=== PATIENT | female | born 1985 | race African-American/Black ===

== ENCOUNTER 2016-07-05 22:45 | Emergency (ER) | payer SELFPAY ==
[~2016-07-05] VITALS: Ht 175.3 cm; Wt 176.9 kg
[~2016-07-05 22:45] MED LIST: CYCL10TA2 PO; HYDR-971 PO; MEDR5TAB PO; SULF1TAB24 PO
--- NOTE | 2016-07-05 23:28 | PHYS DOC ---
Past Medical History Past Medical History: Hypertension Past Surgical History: Other Additional Past Surgical Histo: LEEP Alcohol Use: Rarely Drug Use: None Adult General Chief Complaint Chief Complaint: SHORTNESS OF BREATH HPI HPI Patient is a 31 year old female who presents with shortness of breath. Patient reports she has been feeling short of breath for the past 2 weeks. She also reports an aching pain around her lower rib margin on either side. No clear inciting or mitigating factors. Patient has not taken anything for symptoms. She is noted to be hypertensive on arrival to ED. She says she does have history of hypertension but does not take any meds for it. No other acute complaints. Review of Systems Review of Systems Constitutional: Denies fever or chills Eyes: Denies change in visual acuity or eye pain HENT: Denies nasal congestion or sore throat Respiratory: Shortness of breath. Denies cough Cardiovascular: Achy around lower costal margin b/l GI: Denies abdominal pain, nausea, vomiting, bloody stools or diarrhea : Denies dysuria or hematuria Musculoskeletal: Denies back pain or joint pain Integument: Denies rash or skin lesions Neurologic: Denies headache, focal weakness or sensory changes Current Medications Current Medications Current Medications Medications (Trade) Dose Ordered Sig/Therese Start Time Stop Time Status Last Admin Dose Admin Aspirin (Children'S Aspirin) 324 mg 1X ONCE 07/05/16 23:45 07/05/16 23:46 DC 07/05/16 23:45 324 MG Labetalol HCl (Normodyne) 20 mg 1X ONCE 07/05/16 23:45 07/05/16 23:46 DC 07/06/16 00:12 20 MG Allergies Allergies Allergies Coded Allergies Type Severity Reaction Last Updated Verified No Known Drug Allergies 12/03/13 No Physical Exam Physical Exam Constitutional: Well developed, well nourished, no acute distress, non-toxic appearance HENT: Normocephalic, atraumatic, bilateral external ears normal Eyes: EOMI, conjunctiva normal, no discharge Neck: Normal range of motion, no stridor Cardiovascular: Heart rate normal, regular rhythm, no murmur Lungs & Thorax: Bilateral breath sounds clear to auscultation Abdomen: Obese, bowel sounds normal, soft, non-distended, no TTP Skin: Warm, dry, no erythema, no rash Extremities: No obvious deformity, no edema Neurologic: Alert and oriented X 3, no gross deficits noted Psychologic: Affect normal, judgement normal, mood normal Current Patient Data Vital Signs Vital Signs Date Time Temp Pulse Resp B/P Pulse Ox O2 Delivery O2 Flow Rate FiO2 07/06/16 00:41 80 135/76 93 Room Air 07/05/16 22:58 97.6 18 97.6 Lab Values Laboratory Tests Test 07/05/16 23:20 07/05/16 23:40 White Blood Count 6.8x10^3/uL (4.0-11.0) Red Blood Count 4.70x10^6/uL (3.50-5.40) Hemoglobin 12.3g/dL (12.0-15.5) Hematocrit 37.2% (36.0-47.0) Mean Corpuscular Volume 79fL (79-100) Mean Corpuscular Hemoglobin 26pg (25-35) Mean Corpuscular Hemoglobin Concent 33g/dL (31-37) Red Cell Distribution Width 15.5% (11.5-14.5) H Platelet Count 385x10^3/uL (140-400) Neutrophils (%) (Auto) 49% (31-73) Lymphocytes (%) (Auto) 35% (24-48) Monocytes (%) (Auto) 11% (0-9) H Eosinophils (%) (Auto) 4% (0-3) H Basophils (%) (Auto) 1% (0-3) Neutrophils # (Auto) 3.3x10^3uL (1.8-7.7) Lymphocytes # (Auto) 2.4x10^3/uL (1.0-4.8) Monocytes # (Auto) 0.8x10^3/uL (0.0-1.1) Eosinophils # (Auto) 0.3x10^3/uL (0.0-0.7) Basophils # (Auto) 0.0x10^3/uL (0.0-0.2) D-Dimer (Idalmis) < 0.27ug/mlFEU (0.00-0.50) Sodium Level 143mmol/L (136-145) Potassium Level 3.5mmol/L (3.5-5.1) Chloride Level 106mmol/L (98-107) Carbon Dioxide Level 29mmol/L (21-32) Anion Gap 8 (6-14) Blood Urea Nitrogen 10mg/dL (7-20) Creatinine 0.7mg/dL (0.6-1.0) Estimated GFR (Cockcroft-Gault) 118.1 Glucose Level 105mg/dL (70-99) H Calcium Level 9.2mg/dL (8.5-10.1) Total Bilirubin 0.3mg/dL (0.2-1.0) Direct Bilirubin < 0.1mg/dL (0.0-0.2) Aspartate Amino Transferase (AST) 22U/L (15-37) Alanine Aminotransferase (ALT) 31U/L (14-59) Alkaline Phosphatase 81U/L (46-116) Troponin I Quantitative < 0.017ng/mL (0.000-0.055) Total Protein 8.0g/dL (6.4-8.2) Albumin 3.2g/dL (3.4-5.0) L POC Urine HCG, Qualitative Hcg negative (Negative) Laboratory Tests 07/05/16 23:20 Laboratory Tests 07/05/16 23:20 EKG EKG EKG (my read): sinus rhythm, rate 83, normal axis, QTc 473, no acute ischemic changes Radiology/Procedures Radiology/Procedures CXR (my read): No acute abnormality Course & Med Decision Making Course & Med Decision Making Pertinent Labs and Imaging studies reviewed. (See chart for details) Patient is 31-year-old female who presents with shortness of breath. Will check EKG, chest x-ray, labs to evaluate. Dose of labetalol ordered for hypertension. Dose of aspirin ordered as well. EKG and chest x-ray okay per my read. Labs unremarkable; troponin and d-dimer are both within normal limits. Given duration of symptoms, single troponin is sufficient to rule out UT. Discussed results with patient, who is feeling better at this time. As she has history of hypertension and is markedly hypertensive in the ED, will start her on low-dose amlodipine. Discussed the importance of close follow-up with the primary care physician. Discharged home with return precautions. Dragon Disclaimer Dragon Disclaimer This electronic medical record was generated, in whole or in part, using a voice recognition dictation system. Departure Departure Impression: Primary Impression: SOB (shortness of breath) Additional Impression: Hypertension Disposition: HOME, SELF-CARE Condition: STABLE Referrals: NO PCP (PCP) Patient Instructions: Hypertension Additional Instructions: Thank you for allowing us to provide care today in the Emergency Department. Take the provided medication as directed. Schedule a follow up appointment with a primary care doctor using the provided list as soon as possible. Return promptly to the Emergency Department if you develop any new or concerning symptoms. Scripts Amlodipine Besylate 5 Mg Tablet5 Mg PO DAILY #30 TAB Prov:MALIK MICHAEL MD 07/06/16 Problem Qualifiers MALIK MICHAEL MD Jul 05, 2016 23:28
[2016-07-05 23:39] LABS: BASO % 1 % (0-3); EOS % 4 % (0-3); HEMATOCRIT 37.2 % (36.0-47.0); HEMOGLOBIN 12.3 g/dL (12.0-15.5); LYMPH # 2.4 x10^3/uL (1.0-4.8); LYMPH % 35 % (24-48); MEAN CORPUSCULAR HEMOGLOBIN 26 pg (25-35); MEAN CORPUSCULAR HGB CONC 33 g/dL (31-37); MEAN CORPUSCULAR VOLUME 79 fL (79-100); MONO % 11 % (0-9); NEUT % 49 % (31-73); PLATELET COUNT 385 x10^3/uL (140-400); RED CELL DISTRIBUTION WIDTH 15.5 % (11.5-14.5); WHITE BLOOD COUNT 6.8 x10^3/uL (4.0-11.0)
[2016-07-05] MEDS ORDERED: ASPIRIN 81 MG TAB.CHEW PO ONE (23:45)
[2016-07-05] MEDS ORDERED: LABETALOL 20 MG/4 ML DISP.SYRIN. IVP ONE (23:45)
[2016-07-05 23:55] LABS: ANION GAP 8 (6-14); BLOOD UREA NITROGEN 10 mg/dL (7-20); CALCIUM 9.2 mg/dL (8.5-10.1); CARBON DIOXIDE 29 mmol/L (21-32); CHLORIDE 106 mmol/L (98-107); CREATININE 0.7 mg/dL (0.6-1.0); GFR 118.1; GLUCOSE 105 mg/dL (70-99); POTASSIUM 3.5 mmol/L (3.5-5.1); SODIUM 143 mmol/L (136-145)
[2016-07-06 00:01] LABS: ALBUMIN 3.2 g/dL (3.4-5.0); ALK PHOS 81 U/L (46-116); ALT (SGPT) 31 U/L (14-59); AST (SGOT) 22 U/L (15-37); DIRECT BILIRUBIN < 0.1 mg/dL (0.0-0.2); TOTAL BILIRUBIN 0.3 mg/dL (0.2-1.0)
[2016-07-06 00:41] VITALS: BP 135/76
[2016-07-06] MEDS ORDERED: AMLO5TAB2 PO (00:41)
--- NOTE | 2016-07-06 06:44 | EKG ---
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
--- NOTE | 2016-07-06 07:36 | RAD ---
Chest, 2 views, 07/05/2016: History: Shortness of breath The heart size and pulmonary vascularity are normal. No pulmonary infiltrates are seen. There is no evidence of pleural fluid. IMPRESSION: No acute cardiopulmonary abnormality is detected.
== END 2016-07-06 00:54 | disposition home or self-care (01) ==
LOC: ER 22:45
DX: R06.02 Shortness of breath (principal); I10 Essential (primary) hypertension
CPT/HCPCS: 36415; 71020; 80048; 80076; 81025; 84484; 85027; 85379; 93005; 96374; 99285; J3490

== ENCOUNTER 2016-11-10 15:56 | Emergency (ER) | payer SELFPAY ==
[~2016-11-10] VITALS: Ht 182.9 cm; Wt 148.8 kg
[~2016-11-10 15:56] MED LIST changes: +AMLO5TAB2 PO
[2016-11-10] MEDS ORDERED: hydroCHLOROthiazide 25 MG TABLET PO SCH (16:21)
[2016-11-10] MEDS ORDERED: IV NORMAL SALINE 1000ML BAG 1,000 ML IV ONE (16:30)
[2016-11-10] MEDS ORDERED: diphenhydrAMINE 50 MG/ML VIAL IVP ONE (16:30)
[2016-11-10] MEDS ORDERED: PROMETHAZINE 12.5 MG in IV NORMAL SALINE 50ML 50 ML IV PRN (16:30)
[2016-11-10] MEDS ORDERED: KETOROLAC 15 MG/ML VIAL. IV ONE (16:30)
[2016-11-10 16:45] LABS: BILIRUBIN,URINE NEGATIVE (NEG); GLUCOSE,URINE NEGATIVE (NEG); NITRITE,URINE POSITIVE (NEG); PROTEIN,URINE NEGATIVE (NEG-TRACE)
[2016-11-10 16:57] LABS: BACTERIA,URINE MANY /HPF (0-FEW); RBC,URINE 0 /HPF (0-2); SQUAMOUS EPITHELIAL CELL,UR MOD /LPF; TRICHOMONAS,URINE PRESENT
[2016-11-10 16:58] LABS: CALCIUM 8.9 mg/dL (8.5-10.1); CREATININE 0.7 mg/dL (0.6-1.0); GFR 118.1
[2016-11-10 17:30] VITALS: BP 149/76
[2016-11-10] MEDS ORDERED: POTASSIUM CHLORIDE 20 MEQ TABLET.ER. PO ONE (17:30)
[2016-11-10] MEDS ORDERED: CEPH-264 PO (17:40)
[2016-11-10] MEDS ORDERED: HYDR50TA6 PO (17:40)
[2016-11-10] MEDS ORDERED: TRAM-48 PO (17:40)
--- NOTE | 2016-11-10 17:40 | PHYS DOC ---
Past Medical History Past Medical History: Hypertension Past Surgical History: Other Additional Past Surgical Histo: LEEP Alcohol Use: Rarely Drug Use: None Adult General Chief Complaint Chief Complaint: HEADACHE HPI HPI Patient is a 31 year old female who presents here today complaining of a headache that started approximately 3-4 days ago is been gradually getting worse. Patient denies any fevers shakes chills nausea. Patient reports she did actually have one episode of vomiting earlier today. Patient has any diarrhea. Patient denies any dysuria frequency or urgency. Patient denies any photophobia. Patient has any double or blurred vision. Patient reports been eating and drinking well. Patient reports that she ate prior to coming in. Patient denies any history of hypertension diabetes liver longer kidney problems. Patient reports that she's been told in the past which is come to the ER that her blood pressure is elevated however she's never been started on any medications for it. Patient denies any neck stiffness. Patient's physical exam is unremarkable. Patient has no papilledema. Patient's pupils are equally round and reactive to light. Her extraocular motions were intact. Patient was alert awake and oriented 3. Nonfocal neuro exam. Patient's neck was supple. There is no Kernig's or Buczynski signs. Patient not present with any signs or symptoms O be consistent with meningitis. Patient's ER workup consisted of a BMP to assess her creatinine. Patient's BMP was within normal limits. Patient was not . Patient's UA revealed a urinary tract infection. Patient received normal saline solution for 1 L Benadryl and Phenergan and Toradol to assist with her headache. Patient was given a dose of Rocephin IV secondary to her urinary tract infection will be discharged home on Keflex. Assessment and plan 31-year-old female who presents here today with a gradual onset of headache. Patient's headache appears to be benign in nature. Patient's headache is not positional. This was not a thunderclap headache. Patient has no signs or symptoms O be consistent with subarachnoid hemorrhage. Patient does not have any signs or symptoms O be consistent with meningitis. Patient doesn't have any signs or symptoms that would be highly consistent with a brain tumor. Patient be discharged home on Keflex. Patient does have urinary tract infection. Patient has elevated blood pressure. This is most likely secondary to her headache however she likely also has benign hypertension. I'll initiate hydrochlorothiazide the ER and we will send her home with a prescription for instructions to follow-up with one of clinics in order to have that reassessed and adjusted as needed. Review of Systems Review of Systems Review of systems Constitutional: Denies fever or chills [] Eyes: Denies change in visual acuity, redness, or eye pain [] All other review systems are negative except as documented in the history of present illness portion. Physical exam Constitutional: Well developed, well nourished, no acute distress, non-toxic appearance. [] HENT: Normocephalic, atraumatic, bilateral external ears normal, oropharynx moist, no oral exudates, nose normal. [] Eyes: conjunctiva normal, no discharge. [] Neck: Normal range of motion, no tenderness, supple, no stridor. [] Cardiovascular:Heart rate regular rhythm, Lungs & Thorax: Bilateral breath sounds clear to auscultation [] Abdomen: Bowel sounds normal, soft, no tenderness, no masses, no pulsatile masses. [] Skin: Warm, dry, Back: No tenderness, Extremities: No tenderness, no cyanosis, Neurologic: Alert and oriented X 3, normal motor function, normal sensory function, no focal deficits noted. [] Psychologic: Affect normal, judgement normal, mood normal. [] Current Medications Current Medications Current Medications Medications (Trade) Dose Ordered Sig/Therese Start Time Stop Time Status Last Admin Dose Admin Ceftriaxone Sodium 50 ml @ 100 mls/hr 1X ONCE 11/10/16 17:15 11/10/16 17:44 11/10/16 17:25 100 MLS/HR Diphenhydramine HCl (Benadryl) 50 mg 1X ONCE 11/10/16 16:30 11/10/16 16:31 DC 11/10/16 16:34 50 MG Hydrochlorothiazide (Hydrodiuril) 50 mg DAILY 11/10/16 16:21 11/10/16 16:38 50 MG Ketorolac Tromethamine (Toradol) 15 mg 1X ONCE 11/10/16 16:30 11/10/16 16:31 DC 11/10/16 16:32 15 MG Potassium Chloride (Klor-Con) 40 meq 1X ONCE 11/10/16 17:30 11/10/16 17:31 DC 6/21/17 17:24 40 MEQ Promethazine HCl 12.5 mg/Sodium Chloride 50.5 ml @ 151.5 mls/ hr PRN Q6HRS PRN 11/10/16 16:30 11/10/16 16:36 151.5 MLS/HR Sodium Chloride 1,000 ml @ 1,000 mls/hr 1X ONCE 11/10/16 16:30 11/10/16 17:29 DC 11/10/16 16:36 1,000 MLS/HR Allergies Allergies Allergies Coded Allergies Type Severity Reaction Last Updated Verified No Known Drug Allergies 12/03/13 No Current Patient Data Vital Signs Vital Signs Date Time Temp Pulse Resp B/P (MAP) Pulse Ox O2 Delivery O2 Flow Rate FiO2 11/10/16 16:03 98.2 18 172/100 (124) 95 Room Air 98.2 Lab Values Laboratory Tests Test 11/10/16 15:16 11/10/16 16:05 11/10/16 16:30 POC Urine HCG, Qualitative Hcg negative (Negative) Urine Collection Type Unknown Urine Color Yellow Urine Clarity Clear Urine pH 6.0 Urine Specific [place] 1.015 Urine Protein Negative mg/dL (NEG-TRACE) Urine Glucose (UA) Negative mg/dL (NEG) Urine Ketones (Stick) Negative mg/dL (NEG) Urine Blood Negative (NEG) Urine Nitrite Positive (NEG) Urine Bilirubin Negative (NEG) Urine Urobilinogen Dipstick 1.0 mg/dL (0.2 mg/dL) Urine Leukocyte Esterase Trace (NEG) Urine RBC 0 /HPF (0-2) Urine WBC 11-20 /HPF (0-4) Urine Squamous Epithelial Cells Mod /LPF Urine Bacteria Many /HPF (0-FEW) Urine Mucus Mod /LPF Urine Trichomonas Present Sodium Level 141 mmol/L (136-145) Potassium Level 3.0 mmol/L (3.5-5.1) L Chloride Level 105 mmol/L (98-107) Carbon Dioxide Level 27 mmol/L (21-32) Anion Gap 9 (6-14) Blood Urea Nitrogen 10 mg/dL (7-20) Creatinine 0.7 mg/dL (0.6-1.0) Estimated GFR (Cockcroft-Gault) 118.1 Glucose Level 141 mg/dL (70-99) H Calcium Level 8.9 mg/dL (8.5-10.1) Laboratory Tests 11/10/16 16:30 EKG EKG [] Radiology/Procedures Radiology/Procedures [] Course & Med Decision Making Course & Med Decision Making Pertinent Labs and Imaging studies reviewed. (See chart for details) [] Dragon Disclaimer Dragon Disclaimer This electronic medical record was generated, in whole or in part, using a voice recognition dictation system. Departure Departure Impression: Primary Impression: Accelerated hypertension Additional Impressions: Urinary tract infection Headache Disposition: HOME, SELF-CARE Condition: IMPROVED Referrals: NO PCP (PCP) Patient Instructions: Hypertension, Migraine Headache, Urinary Tract Infection Scripts Tramadol Hcl (ULTRAM) 50 Mg Tablet 1 TAB PO Q6HRS, #6 TAB Prov: SYEDA MENDIOLA MD 11/10/16 Cephalexin (KEFLEX) 500 Mg Capsule 500 MG PO QID for 10 Days, CAP Prov: SYEDA MENDIOLA MD 11/10/16 Hydrochlorothiazide (HYDROCHLOROTHIAZIDE TABLET) 50 Mg Tablet 1 TAB PO DAILY, #30 TAB 5 Refills Prov: SYEDA MENDIOLA MD 11/10/16 Problem Qualifiers SYEDA MENDIOLA MD Nov 10, 2016 17:40
== END 2016-11-10 18:00 | disposition home or self-care (01) ==
LOC: ER 15:56
DX: R51 Headache (principal); N39.0 Urinary tract infection, site not specified; I10 Essential (primary) hypertension
CPT/HCPCS: 36415; 80048; 81001; 81025; 87086; 96361; 96374; 96375; 99284; J0690; J1200; J1885; J2550; J7030

== ENCOUNTER 2017-01-25 17:40 | Emergency (ER) | payer SELFPAY ==
[~2017-01-25] VITALS: Ht 185.4 cm; Wt 172.4 kg
[~2017-01-25 17:40] MED LIST changes: +CEPH-264 PO; +HYDR50TA6 PO; +TRAM-48 PO
[2017-01-25 18:28] LABS: BILIRUBIN,URINE SMALL (NEG); GLUCOSE,URINE NEGATIVE (NEG); NITRITE,URINE NEGATIVE (NEG); PROTEIN,URINE 30 mg/dL (NEG-TRACE)
[2017-01-25 18:45] LABS: BACTERIA,URINE FEW /HPF (0-FEW); RBC,URINE TNTC /HPF (0-2); SQUAMOUS EPITHELIAL CELL,UR FEW /LPF
[2017-01-25 18:47] LABS: TRICHOMONAS,URINE PRESENT
[2017-01-25 18:51] LABS: BASO # 0.1 x10^3/uL (0.0-0.2); BASO % 1 % (0-3); EOS % 3 % (0-3); HEMATOCRIT 35.6 % (36.0-47.0); HEMOGLOBIN 11.8 g/dL (12.0-15.5); LYMPH # 3.4 x10^3/uL (1.0-4.8); LYMPH % 37 % (24-48); MEAN CORPUSCULAR HEMOGLOBIN 27 pg (25-35); MEAN CORPUSCULAR HGB CONC 33 g/dL (31-37); MEAN CORPUSCULAR VOLUME 81 fL (79-100); MONO % 7 % (0-9); NEUT % 53 % (31-73); PLATELET COUNT 359 x10^3/uL (140-400); RED BLOOD COUNT 4.41 x10^6/uL (3.50-5.40); RED CELL DISTRIBUTION WIDTH 15.7 % (11.5-14.5); WHITE BLOOD COUNT 9.2 x10^3/uL (4.0-11.0)
[2017-01-25 19:11] LABS: CALCIUM 8.6 mg/dL (8.5-10.1); CREATININE 0.9 mg/dL (0.6-1.0); GFR 88.4; POTASSIUM 3.2 mmol/L (3.5-5.1)
--- NOTE | 2017-01-25 20:46 | ED.ADGEN ---
Past Medical History Past Medical History: No Pertinent History Past Surgical History: Other Additional Past Surgical Histo: leep Alcohol Use: None Drug Use: None Adult General Chief Complaint Chief Complaint: VAGINAL BLEEDING HPI HPI Patient is a 31 year old woman, with history of hypertension, who presents to the emergency department with a complaint of vaginal bleeding. Patient states that she has had regular periods, states that she began experiencing vaginal bleeding 18 days ago, bleeding is persistent, has been late most days, but today she states she used "16 pads", and began feeling slightly lightheaded, prompt her to come to the ED for evaluation. She denies any nausea or vomiting, any injuries, any weakness, numbness, tingling, chest pain, shortness of breath , near-syncope. Denies any similar symptoms previously. States she is sexually active but has not had intercourse in 3 months. She states her last pelvic examination was about a month ago at a health clinic. She states at that time she had a Pap smear and a full evaluation which was normal. She is experiencing heavy vaginal bleeding with dark blood and clots, no bright red blood, denies any discharge or drainage from the vagina, any urinary complaints. Review of Systems Review of Systems Constitutional: Denies fever or chills. [] Eyes: Denies change in visual acuity. [] HENT: Denies nasal congestion or sore throat. [] Respiratory: Denies cough or shortness of breath. [] Cardiovascular: Denies chest pain or edema. [] GI: Mild lower abdominal cramping, no nausea, vomiting, bloody stools or diarrhea. Patient with heavy vaginal bleeding, passing dark blood and clots today. : Denies dysuria. [] Musculoskeletal: Denies back pain or joint pain. [] Integument: Denies rash. [] Neurologic: Denies headache, focal weakness or sensory changes. [] Endocrine: Denies polyuria or polydipsia. [] Lymphatic: Denies swollen glands. [] Psychiatric: Denies depression or anxiety. [] Current Medications Current Medications Current Medications Medications (Trade) Dose Ordered Sig/Therese Start Time Stop Time Status Last Admin Dose Admin Azithromycin (Zithromax) 250 mg STK-MED ONCE 01/25/17 21:54 01/25/17 21:55 DC Ceftriaxone Sodium (Rocephin Im) 250 mg STK-MED ONCE 01/25/17 21:53 01/25/17 21:54 DC Metronidazole (Flagyl) 500 mg STK-MED ONCE 01/25/17 21:53 01/25/17 21:54 DC Allergies Allergies Allergies Coded Allergies Type Severity Reaction Last Updated Verified No Known Drug Allergies 12/03/13 No Physical Exam Physical Exam Constitutional: Well developed, well nourished, no acute distress, non-toxic appearance. [] HENT: Normocephalic, atraumatic, bilateral external ears normal, oropharynx moist, no oral exudates, nose normal. [] Eyes: PERRLA, EOMI, conjunctiva normal, no discharge. [] Neck: Normal range of motion, no tenderness, supple, no stridor. [] Cardiovascular:Heart rate regular rhythm, no murmur, S1, S2, no rubs or gallops. [] Lungs & Thorax: Bilateral breath sounds clear to auscultation, no wheezing, rhonchi, rales. No chest or crepitus or tenderness. [] Abdomen: Bowel sounds normal, soft, obese, no tenderness, no rebound, rigidity, no guarding, no masses, no pulsatile masses. [] Skin: Warm, dry, no erythema, no rash. [] Back: No tenderness, no CVA tenderness. [] Extremities: No tenderness, no cyanosis, no clubbing, ROM intact, no edema. [] Neurologic: Alert and oriented X 3, normal motor function, normal sensory function, no focal deficits noted. [] Psychologic: Affect normal, judgement normal, mood normal. [] Pelvic examination: Normal-appearing external examination, bimanual examination reveals a closed os, with a small amount of dark red blood and small clots noted in vault. Patient with mild tenderness palpation in the left adnexa, no masses palpated, speculum examination reveals dark red blood and clots in the vaginal vault, normal-appearing cervix, with a small amount of dark blood noted at os, but no bruising or active bleeding identified, no] blood, no evidence of injury, no foreign bodies or other abnormalities identified. Current Patient Data Vital Signs Vital Signs Date Time Temp Pulse Resp B/P (MAP) Pulse Ox O2 Delivery O2 Flow Rate FiO2 01/25/17 18:00 98.5 76 18 146/75 (98) 99 98.5 Lab Values Laboratory Tests Test 01/25/17 17:04 01/25/17 17:51 01/25/17 18:35 POC Urine HCG, Qualitative Hcg negative (Negative) Urine Collection Type Unknown Urine Color Red Urine Clarity Cloudy Urine pH 6.0 Urine Specific [place] >=1.030 Urine Protein 30 mg/dL (NEG-TRACE) Urine Glucose (UA) Negative mg/dL (NEG) Urine Ketones (Stick) Trace mg/dL (NEG) Urine Blood Large (NEG) Urine Nitrite Negative (NEG) Urine Bilirubin Small (NEG) Urine Urobilinogen Dipstick 1.0 mg/dL (0.2 mg/dL) Urine Leukocyte Esterase Small (NEG) Urine RBC Tntc /HPF (0-2) Urine WBC 1-4 /HPF (0-4) Urine Squamous Epithelial Cells Few /LPF Urine Bacteria Few /HPF (0-FEW) Urine Mucus Slight /LPF Urine Trichomonas Present White Blood Count 9.2 x10^3/uL (4.0-11.0) Red Blood Count 4.41 x10^6/uL (3.50-5.40) Hemoglobin 11.8 g/dL (12.0-15.5) L Hematocrit 35.6 % (36.0-47.0) L Mean Corpuscular Volume 81 fL (79-100) Mean Corpuscular Hemoglobin 27 pg (25-35) Mean Corpuscular Hemoglobin Concent 33 g/dL (31-37) Red Cell Distribution Width 15.7 % (11.5-14.5) H Platelet Count 359 x10^3/uL (140-400) Neutrophils (%) (Auto) 53 % (31-73) Lymphocytes (%) (Auto) 37 % (24-48) Monocytes (%) (Auto) 7 % (0-9) Eosinophils (%) (Auto) 3 % (0-3) Basophils (%) (Auto) 1 % (0-3) Neutrophils # (Auto) 4.8 x10^3uL (1.8-7.7) Lymphocytes # (Auto) 3.4 x10^3/uL (1.0-4.8) Monocytes # (Auto) 0.6 x10^3/uL (0.0-1.1) Eosinophils # (Auto) 0.3 x10^3/uL (0.0-0.7) Basophils # (Auto) 0.1 x10^3/uL (0.0-0.2) Sodium Level 140 mmol/L (136-145) Potassium Level 3.2 mmol/L (3.5-5.1) L Chloride Level 104 mmol/L (98-107) Carbon Dioxide Level 25 mmol/L (21-32) Anion Gap 11 (6-14) Blood Urea Nitrogen 13 mg/dL (7-20) Creatinine 0.9 mg/dL (0.6-1.0) Estimated GFR (Cockcroft-Gault) 88.4 Glucose Level 106 mg/dL (70-99) H Calcium Level 8.6 mg/dL (8.5-10.1) Laboratory Tests 01/25/17 18:35 Laboratory Tests 01/25/17 18:35 Microbiology 01/25/17 Wet Prep - Final, Complete EKG EKG Not indicated.[] Radiology/Procedures Radiology/Procedures [] [facility] [address] [place] [address] IMAGING REPORT Signed PATIENT: BULL ENAMORADO ACCOUNT: [id number] : 1985 LOCATION: ER AGE: 31 SEX: F EXAM STATUS: REG ER ORD. PHYSICIAN: SHANITA SILVESTRE DO REASON: Vaginal bleeding/pain PROCEDURE: PELVIS COMPLETE Examination: Ultrasound pelvis HISTORY: History of vaginal bleeding COMPARISON: None available FINDINGS: The uterus measures 6.8 x 4.5 x 4.2 cm. The endometrium measures 6.9 mm in thickness. The right ovary measures 2.9 x 1.8 x 1.6 cm. The left ovary measures 3.4 x 2 .0 x 1.8 cm. Blood flow identified in the right and left ovaries. Trace amount of free fluid identified in the cul-de-sac. Follicles identified in the right and left ovaries. IMPRESSION: Unremarkable visualized exam. Electronically signed by: Devan Rojas MD (01/25/2017 9:53 PM) [facility] DICTATED and SIG Course & Med Decision Making Course & Med Decision Making Pertinent Labs and Imaging studies reviewed. (See chart for details) Patient with no active bleeding noted at this time, hemoglobin is 11.8, which is mild patient's prior. Noted to have a potassium of 3.1, otherwise electrolytes and renal function within normal limits. After discussion at bedside will proceed with ultrasound in the ED, patient had also been performed about a year ago that did not reveal any concerning findings at that time aside from mildly thickened endometrium. No acute findings identified on today's ultrasound. Wet prep was positive for trichomoniasis, I did revisit this with the patient as she initially stated that she had no concerns for sexually transmitted infections. Patient states that she has a single partner, and would like to be treated prophylactically for chlamydia and gonorrhea, cultures are pending at this time, patient received ceftriaxone injection along with azithromycin and 2 g of metronidazole, additionally was given a prescription for her partner who has no reported allergies. Importance of follow-up for test of cure, and of sexual transmitted disease testing for both patient and her partner was discussed in detail with patient who voiced understanding and agreement. Patient with evaluation consisted for dysfunctional uterine bleeding rebleeding, without concerning cause, or concerning laboratory findings as stated, she was given dietary recommendations regarding potassium, and again was instructed to establish follow-up with her primary care provider for additional evaluation, we also discussed a length at bedside concerning symptoms that prompt return to the ED. Patient voiced understanding and agreement, was given contact information for Dr. Carney of [facility], along with precautions and instructions as stated above. Dragon Disclaimer Dragon Disclaimer This electronic medical record was generated, in whole or in part, using a voice recognition dictation system. Departure Impression: Primary Impression: Trichomoniasis Additional Impression: Dysfunctional uterine bleeding Disposition: 01 HOME, SELF-CARE Condition: IMPROVED Problem Qualifiers SHANITA SILVESTRE DO Jan 25, 2017 20:46
[2017-01-25 21:00] VITALS: BP 146/75
[2017-01-25] MEDS ORDERED: metroNIDAZOLE 500 MG TABLET ONE (21:53)
[2017-01-25] MEDS ORDERED: cefTRIAXone IM 250 MG VIAL IM ONE ×2 (21:53→22:15)
[2017-01-25] MEDS ORDERED: AZITHROMYCIN 250 MG TABLET. ONE (21:54)
--- NOTE | 2017-01-25 21:56 | RAD ---
Examination: Ultrasound pelvis HISTORY: History of vaginal bleeding COMPARISON: None available FINDINGS: The uterus measures 6.8 x 4.5 x 4.2 cm. The endometrium measures 6.9 mm in thickness. The right ovary measures 2.9 x 1.8 x 1.6 cm. The left ovary measures 3.4 x 2 .0 x 1.8 cm. Blood flow identified in the right and left ovaries. Trace amount of free fluid identified in the cul-de-sac. Follicles identified in the right and left ovaries. IMPRESSION: Unremarkable visualized exam. Electronically signed by: Devan Rojas MD (01/25/2017 9:53 PM) [facility]
[2017-01-25] MEDS ORDERED: metroNIDAZOLE 500 MG TABLET PO ONE (22:00)
[2017-01-25] MEDS ORDERED: AZITHROMYCIN 250 MG TABLET. PO ONE (22:15)
== END 2017-01-25 22:10 | disposition home or self-care (01) ==
LOC: ER 17:40
DX: A59.9 Trichomoniasis, unspecified (principal); N93.8 Other specified abnormal uterine and vaginal bleeding; R10.30 Lower abdominal pain, unspecified; I10 Essential (primary) hypertension
CPT/HCPCS: 36415; 76856; 80048; 81001; 81025; 85025; 87491; 87591; 96372; 99285; J0696; Q0111; Q0144

== ENCOUNTER 2017-06-03 20:10 | Emergency (ER) | payer SELFPAY ==
[2017-06-03 20:46] LABS: URINE HCG POC HCG NEGATIVE (Negative)
[2017-06-03 21:36] LABS: INFLUENZA A PATIENT NEGATIVE (NEGATIVE)
[2017-06-03 21:37] LABS: INFLUENZA B PATIENT POSITIVE (NEGATIVE); OBC FLU VALID
[2017-06-03] MEDS: ACETAMINOPHEN 500 MG TABLET PO (22:16)
[2017-06-04 11:05] LABS: NEGATIVE OBC STREP NEG; POSITIVE OBC STREP POS
== END 2017-06-03 22:22 | disposition home or self-care (01) ==
LOC: ER 20:10
DX: J10.1 Influenza due to other identified influenza virus with other respiratory manifestations (principal)
CPT/HCPCS: 81025; 87070; 87804; 87804-59; 87880; 99284

== ENCOUNTER 2017-08-18 15:08 | Emergency (ER) | payer SELFPAY | END 2017-08-18 17:15 | disposition home or self-care (01) | LOC: ER 15:08 | DX: M77.31 Calcaneal spur, right foot (principal) | CPT/HCPCS: 73630; 93971; 99284-25 ==

== ENCOUNTER 2018-08-01 17:29 | Emergency (ER) | payer SELFPAY ==
[~2018-08-01] VITALS: Ht 172.7 cm; Wt 90.7 kg
[~2018-08-01 17:29] MED LIST changes: +ALBU2.5V8 INH; +AMLO5TAB10 PO; -AMLO5TAB2 PO; +BENZ100C PO; +HYDR-3164 PO; -HYDR-971 PO; +MELO7.5T5 PO; +ONDA4TAB10 PO
--- NOTE | 2018-08-01 17:45 | PHYS DOC ---
Past Medical History Past Medical History: No Pertinent History Past Surgical History: No Surgical History Additional Past Surgical Histo: leep Alcohol Use: None Drug Use: None Adult General Chief Complaint Chief Complaint: EARACHE/EAR PAIN HPI HPI Patient is a 33 year old female presents for eval of rt ear pain x1-2 weeks. Denies URI symptoms or fevers. Review of Systems Review of Systems Constitutional: Denies fever or chills [ Eyes: Denies change in visual acuity, redness, or eye pain [] HENT: +nasal congestion , rt ear pain [] Respiratory: Denies cough or shortness of breath [] Cardiovascular: No additional information not addressed in HPI [] GI: Denies abdominal pain, nausea, vomiting, bloody stools or diarrhea [] : Denies dysuria or hematuria [] Musculoskeletal: Denies back pain or joint pain [] Integument: Denies rash or skin lesions [] All other systems were reviewed and found to be within normal limits, except as documented in this note. Allergies Allergies Allergies Coded Allergies Type Severity Reaction Last Updated Verified No Known Drug Allergies 12/03/13 No Physical Exam Physical Exam Constitutional: Well developed, well nourished, no acute distress, non-toxic appearance. [] HENT: Normocephalic, atraumatic,RT EAR CLEAR FLUID BEHIND TM, NO EVIDENCE OF INFECTION, nose normal. [] Eyes: PERRLA, EOMI, conjunctiva normal, no discharge. [] Neck: Normal range of motion, no tenderness, supple, no stridor. [] Skin: Warm, dry, no erythema, no rash. [] Neurologic: Alert and oriented X 3, normal motor function, normal sensory function, no focal deficits noted. [] Psychologic: Affect normal, judgement normal, mood normal. [] EKG EKG [] Radiology/Procedures Radiology/Procedures [] Course & Med Decision Making Course & Med Decision Making Pertinent Labs and Imaging studies reviewed. (See chart for details) []RECOMMEND OTC ANTIHISTAMINES AND FLONASE Dragon Disclaimer Dragon Disclaimer This electronic medical record was generated, in whole or in part, using a voice recognition dictation system. Departure Departure Impression: Primary Impression: Serous otitis media Disposition: 01 HOME, SELF-CARE Condition: STABLE Referrals: NO PCP (PCP) Patient Instructions: Serous Otitis Media CALEB ORTEGA APRN Aug 01, 2018 17:45
[2018-08-01 18:11] VITALS: BP 168/100
== END 2018-08-01 18:15 | disposition home or self-care (01) ==
LOC: ER 17:29
DX: H65.91 Unspecified nonsuppurative otitis media, right ear (principal)
CPT/HCPCS: 99281

== ENCOUNTER 2018-12-28 11:29 | Emergency (ER) | payer SELFPAY ==
[~2018-12-28] VITALS: Ht 175.3 cm; Wt 158.8 kg
[2018-12-28 11:55] VITALS: BP 136/70
[2018-12-28 12:13] LABS: BASO % 1 % (0-3); EOS # 0.1 x10^3/uL (0.0-0.7); EOS % 2 % (0-3); HEMATOCRIT 37.3 % (36.0-47.0); HEMOGLOBIN 12.5 g/dL (12.0-15.5); LYMPH # 2.5 x10^3/uL (1.0-4.8); LYMPH % 37 % (24-48); MEAN CORPUSCULAR HEMOGLOBIN 27 pg (25-35); MEAN CORPUSCULAR HGB CONC 34 g/dL (31-37); MEAN CORPUSCULAR VOLUME 80 fL (79-100); MONO # 0.4 x10^3/uL (0.0-1.1); MONO % 6 % (0-9); NEUT # 3.7 x10^3/uL (1.8-7.7); NEUT % 55 % (31-73); PLATELET COUNT 395 x10^3/uL (140-400); RED BLOOD COUNT 4.64 x10^6/uL (3.50-5.40); RED CELL DISTRIBUTION WIDTH 15.4 % (11.5-14.5); WHITE BLOOD COUNT 6.8 x10^3/uL (4.0-11.0)
[2018-12-28 12:26] LABS: CREATININE 0.6 mg/dL (0.6-1.0); GFR 139.3; POTASSIUM 3.6 mmol/L (3.5-5.1)
--- NOTE | 2018-12-28 12:27 | PHYS DOC ---
Past Medical History Past Medical History: No Pertinent History Past Surgical History: No Surgical History Additional Past Surgical Histo: leep Alcohol Use: None Drug Use: None Adult General Chief Complaint Chief Complaint: ABDOMINAL PAIN HPI HPI Patient is a 33 year old female with no significant medical history who presents to the ED today complaining of cramping bilateral abdominal pain that began a couple days ago after she found out she was . She states she did a home test which was positive. She is a 1 para 0. This will be her first at the age of 33. She states she has tried for many years to have kids with no success. Denies any vag bleeding, LMP is 11/05/2018 Review of Systems Review of Systems Constitutional: Denies fever or chills [] Eyes: Denies change in visual acuity, redness, or eye pain [] HENT: Denies nasal congestion or sore throat [] Respiratory: Denies cough or shortness of breath [] Cardiovascular: No additional information not addressed in HPI [] GI: Report abdominal pain, reports + home test, denies nausea, vomiting, bloody stools or diarrhea [] : Denies dysuria or hematuria [] Musculoskeletal: Denies back pain or joint pain [] Integument: Denies rash or skin lesions [] Neurologic: Denies headache, focal weakness or sensory changes [] All other systems were reviewed and found to be within normal limits, except as documented in this note. Allergies Allergies Allergies Coded Allergies Type Severity Reaction Last Updated Verified No Known Drug Allergies 12/03/13 No Physical Exam Physical Exam Constitutional: Well developed, well nourished, no acute distress, non-toxic appearance. [] HENT: Normocephalic, atraumatic, bilateral external ears normal, oropharynx moist, no oral exudates, nose normal. [] Eyes: PERRLA, EOMI, conjunctiva normal, no discharge. [] Neck: Normal range of motion, no tenderness, supple, no stridor. [] Cardiovascular:Heart rate regular rhythm, no murmur [] Lungs & Thorax: Bilateral breath sounds clear to auscultation [] Abdomen: Bowel sounds normal, soft, no tenderness, no masses, no pulsatile masses. [] Skin: Warm, dry, no erythema, no rash. [] Back: No tenderness, no CVA tenderness. [] Extremities: No tenderness, no cyanosis, no clubbing, ROM intact, no edema. [] Neurologic: Alert and oriented X 3, normal motor function, normal sensory function, no focal deficits noted. [] Psychologic: Affect normal, judgement normal, mood normal. [] Current Patient Data Vital Signs Vital Signs Date Time Temp Pulse Resp B/P (MAP) Pulse Ox O2 Delivery O2 Flow Rate FiO2 12/28/18 11:55 98.6 80 17 136/70 (92) 96 Room Air 98.6 Lab Values Laboratory Tests Test 12/28/18 12:00 12/28/18 13:00 White Blood Count 6.8 x10^3/uL (4.0-11.0) Red Blood Count 4.64 x10^6/uL (3.50-5.40) Hemoglobin 12.5 g/dL (12.0-15.5) Hematocrit 37.3 % (36.0-47.0) Mean Corpuscular Volume 80 fL (79-100) Mean Corpuscular Hemoglobin 27 pg (25-35) Mean Corpuscular Hemoglobin Concent 34 g/dL (31-37) Red Cell Distribution Width 15.4 % (11.5-14.5) H Platelet Count 395 x10^3/uL (140-400) Neutrophils (%) (Auto) 55 % (31-73) Lymphocytes (%) (Auto) 37 % (24-48) Monocytes (%) (Auto) 6 % (0-9) Eosinophils (%) (Auto) 2 % (0-3) Basophils (%) (Auto) 1 % (0-3) Neutrophils # (Auto) 3.7 x10^3/uL (1.8-7.7) Lymphocytes # (Auto) 2.5 x10^3/uL (1.0-4.8) Monocytes # (Auto) 0.4 x10^3/uL (0.0-1.1) Eosinophils # (Auto) 0.1 x10^3/uL (0.0-0.7) Basophils # (Auto) 0.0 x10^3/uL (0.0-0.2) Maternal Serum HCG Beta Subunit 121 mIU/mL (0-5) H Sodium Level 140 mmol/L (136-145) Potassium Level 3.6 mmol/L (3.5-5.1) Chloride Level 104 mmol/L (98-107) Carbon Dioxide Level 24 mmol/L (21-32) Anion Gap 12 (6-14) Blood Urea Nitrogen 9 mg/dL (7-20) Creatinine 0.6 mg/dL (0.6-1.0) Estimated GFR (Cockcroft-Gault) 139.3 BUN/Creatinine Ratio 15 (6-20) Glucose Level 98 mg/dL (70-99) Calcium Level 9.0 mg/dL (8.5-10.1) Total Bilirubin 0.3 mg/dL (0.2-1.0) Aspartate Amino Transferase (AST) 20 U/L (15-37) Alanine Aminotransferase (ALT) 36 U/L (14-59) Alkaline Phosphatase 91 U/L (46-116) Total Protein 8.1 g/dL (6.4-8.2) Albumin 3.3 g/dL (3.4-5.0) L Albumin/Globulin Ratio 0.7 (1.0-1.7) L Urine Collection Type Unknown Urine Color Yellow Urine Clarity Clear Urine pH 6.0 Urine Specific [place] 1.015 Urine Protein Negative mg/dL (NEG-TRACE) Urine Glucose (UA) Negative mg/dL (NEG) Urine Ketones (Stick) Negative mg/dL (NEG) Urine Blood Negative (NEG) Urine Nitrite Positive (NEG) Urine Bilirubin Negative (NEG) Urine Urobilinogen Dipstick 1.0 mg/dL (0.2 mg/dL) Urine Leukocyte Esterase Trace (NEG) Urine RBC 0 /HPF (0-2) Urine WBC 1-4 /HPF (0-4) Urine Squamous Epithelial Cells Many /LPF Urine Bacteria Mod /HPF (0-FEW) Urine Mucus Marked /LPF Laboratory Tests 12/28/18 12:00 Laboratory Tests 12/28/18 12:00 EKG EKG [] Radiology/Procedures Radiology/Procedures []PROCEDURE: OB <14 WKS W/TV EXAM: Obstetrics sonogram. HISTORY: Pain. TECHNIQUE: Transabdominal and transvaginal sonographic imaging of the pelvis was performed. COMPARISON: None. FINDINGS: The uterus measures 9.1 x 6.1 x 4.7 cm. The endometrial stripe measures 1.5 cm. No intrauterine gestational sac is seen. The ovaries are normal in size and demonstrate normal blood flow. There are small bilateral antral follicles within both ovaries. There is a small amount of free fluid within the cul-de-sac. There is echogenic material within the free fluid, measuring approximately 2.5 cm. IMPRESSION: 1. No evidence of an intrauterine gestational sac. There is no beta-hCG level for correlation at the time of dictation. If the beta-hCG level is within limits to expect a sonographically visible gestational sac, the possibility of an ectopic gestation is not excluded. There is a small amount of nonspecific pelvic free fluid containing echogenic material measuring 2.5 cm. This may be due to blood products. 2. Sonographically unremarkable ovaries. Electronically signed by: Dianne Issa MD (12/28/2018 12:50 PM) [place] [id number] DICTATED and SIGNED BY: DIANNE ISSA MD DATE: 12/28/18 1250 Course & Med Decision Making Course & Med Decision Making Pertinent Labs and Imaging studies reviewed. (See chart for details) This is a 33-year-old female patient who presents to the ED today concerned she could be also complaining of bilateral lower abdominal pain that began when she found out she could be . She states she did a home test a couple days ago which was positive. Her last menstrual cycle was November 05, 2018. She as never been before currently 33 years. Beta hcg 121, CBC, CMP-no acute findings. UA noted for UTI. Discharge and cephalexin. OB ultrasound-No evidence of an intrauterine gestational sac. There is no beta- hCG level for correlation at the time of dictation. If the beta-hCG level is within limits to expect a sonographically visible gestational sac, the possibility of an ectopic gestation is not excluded. There is a small amount of nonspecific pelvic free fluid containing echogenic material measuring 2.5 cm. This may be due to blood products. [address] Chong regarding ultrasound results. She requested patient follow-up with her clinic in the next 1-2 days for repeat labs/beta hCG as well as repeat ultrasound. Patient has no vaginal bleeding this point. She was provided return precautions and discharged in stable condition. Dragon Disclaimer Dragon Disclaimer This electronic medical record was generated, in whole or in part, using a voice recognition dictation system. Departure Departure Impression: Primary Impression: Abdominal pain during Additional Impressions: Urinary tract infection during Disposition: HOME, SELF-CARE Condition: STABLE Referrals: NO PCP (PCP) JANA RODRIGUEZ MD Please contact the provided [facility] today and set up a follow-up appointment in 1-2 days. Patient Instructions: ABCs of , Abdominal Pain During , - Urinary Tract Infection Additional Instructions: Your test in the emergency room is positive with the beta-hCG of 121. He also have urinary tract infection, we put you on antibiotics for one week. Please contact the provided [facility] today and set up a follow-up appointment for repeat blood work as well as ultrasound. Please start taking vitamins Scripts Pnv Cmb#95/Ferrous Fumarate/Fa ( TABLET) 1 Each Tablet 1 TAB PO DAILY, #90 TAB 3 Refills Prov: JAK ARORA APRN 12/28/18 Nitrofurantoin Monohyd/M-Cryst (MACROBID 100 MG CAPSULE) 100 Mg Capsule 1 CAP PO BID, #14 CAP Prov: JAK ARORA APRN 12/28/18 Problem Qualifiers Primary Impression: Abdominal pain during Trimester: first trimester Qualified Codes: O26.891 - Other specified related conditions, first trimester; R10.9 - Unspecified abdominal pain Additional Impressions: Urinary tract infection during Trimester: first trimester Qualified Codes: O23.41 - Unspecified infection of urinary tract in , first trimester Weeks of gestation: less than 8 weeks Qualified Codes: Z3A.01 - Less than 8 weeks gestation of JAK ARORA APRN Dec 28, 2018 12:27
[2018-12-28 12:31] LABS: ALBUMIN 3.3 g/dL (3.4-5.0); ALBUMIN/GLOBULIN RATIO 0.7 (1.0-1.7); TOTAL BILIRUBIN 0.3 mg/dL (0.2-1.0); TOTAL PROTEIN 8.1 g/dL (6.4-8.2)
--- NOTE | 2018-12-28 12:53 | RAD ---
EXAM: Obstetrics sonogram. HISTORY: Pain. TECHNIQUE: Transabdominal and transvaginal sonographic imaging of the pelvis was performed. COMPARISON: None. FINDINGS: The uterus measures 9.1 x 6.1 x 4.7 cm. The endometrial stripe measures 1.5 cm. No intrauterine gestational sac is seen. The ovaries are normal in size and demonstrate normal blood flow. There are small bilateral antral follicles within both ovaries. There is a small amount of free fluid within the cul-de-sac. There is echogenic material within the free fluid, measuring approximately 2.5 cm. IMPRESSION: 1. No evidence of an intrauterine gestational sac. There is no beta-hCG level for correlation at the time of dictation. If the beta-hCG level is within limits to expect a sonographically visible gestational sac, the possibility of an ectopic gestation is not excluded. There is a small amount of nonspecific pelvic free fluid containing echogenic material measuring 2.5 cm. This may be due to blood products. 2. Sonographically unremarkable ovaries. Electronically signed by: Dianne Denton MD (12/28/2018 12:50 PM) [facility]
[2018-12-28 13:38] LABS: BILIRUBIN,URINE NEGATIVE (NEG); CLARITY,URINE CLEAR; COLOR,URINE YELLOW; NITRITE,URINE POSITIVE (NEG); PROTEIN,URINE NEGATIVE (NEG-TRACE)
[2018-12-28 13:47] LABS: SQUAMOUS EPITHELIAL CELL,UR MANY /LPF
[2018-12-28 13:48] LABS: BACTERIA,URINE MOD /HPF (0-FEW); RBC,URINE 0 /HPF (0-2)
[2018-12-28] MEDS ORDERED: NITR100C62 PO (14:23)
[2018-12-28] MEDS ORDERED: PNV1TABL25 PO (14:23)
== END 2018-12-28 14:32 | disposition home or self-care (01) ==
LOC: ER 11:29
DX: O23.41 Unspecified infection of urinary tract in pregnancy, first trimester (principal); Z3A.01 Less than 8 weeks gestation of pregnancy
CPT/HCPCS: 36415; 76801; 76817; 80053; 81001; 84702; 85025; 99285-25

== ENCOUNTER 2019-01-04 11:48 | Emergency (ER) | payer SELFPAY ==
[~2019-01-04] VITALS: Ht 175.3 cm; Wt 167.8 kg
[~2019-01-04 11:48] MED LIST changes: +NITR100C62 PO; +PNV1TABL25 PO
[2019-01-04 12:23] VITALS: BP 147/94
[2019-01-04] MEDS ORDERED: ONDANSETRON PF 4 MG/2 ML VIAL. IV ONE (13:30)
[2019-01-04] MEDS ORDERED: IV NORMAL SALINE 1000ML BAG 1,000 ML IV ONE (13:30)
[2019-01-04 13:34] LABS: BASO % 1 % (0-3); EOS # 0.2 x10^3/uL (0.0-0.7); EOS % 3 % (0-3); HEMATOCRIT 36.7 % (36.0-47.0); HEMOGLOBIN 12.1 g/dL (12.0-15.5); LYMPH # 3.1 x10^3/uL (1.0-4.8); LYMPH % 37 % (24-48); MEAN CORPUSCULAR HEMOGLOBIN 27 pg (25-35); MEAN CORPUSCULAR HGB CONC 33 g/dL (31-37); MEAN CORPUSCULAR VOLUME 82 fL (79-100); MONO # 0.6 x10^3/uL (0.0-1.1); MONO % 7 % (0-9); NEUT # 4.4 x10^3/uL (1.8-7.7); NEUT % 53 % (31-73); PLATELET COUNT 398 x10^3/uL (140-400); RED CELL DISTRIBUTION WIDTH 16.1 % (11.5-14.5); WHITE BLOOD COUNT 8.4 x10^3/uL (4.0-11.0)
[2019-01-04 13:35] LABS: CREATININE 0.6 mg/dL (0.6-1.0); GFR 139.3; POTASSIUM 3.9 mmol/L (3.5-5.1)
--- NOTE | 2019-01-04 13:36 | PHYS DOC ---
Past Medical History Past Medical History: Hypertension Past Surgical History: No Surgical History Additional Past Surgical Histo: leep Alcohol Use: None Drug Use: None Adult General Chief Complaint Chief Complaint: VAGINAL BLEEDING HPI HPI Patient is a 33 year old female that presents with vaginal bleeding and abdominal cramping since yesterday. The patient states that she took a home test was positive and states that her last pressure. LMP was November 06. She rates her pain as 5 out of 10 in severity. Has had mild nausea denies any vomiting. Review of Systems Review of Systems Constitutional: Denies fever or chills [] Eyes: Denies change in visual acuity, redness, or eye pain [] HENT: Denies nasal congestion or sore throat [] Respiratory: Denies cough or shortness of breath [] Cardiovascular: No additional information not addressed in HPI [] GI: Reports crampy lower abdominal pain, nausea, Denies vomiting, bloody stools or diarrhea [] : Reports vaginal spotting Musculoskeletal: Denies back pain or joint pain [] Integument: Denies rash or skin lesions [] Neurologic: Denies headache, focal weakness or sensory changes [] Endocrine: Denies polyuria or polydipsia [] Complete systems were reviewed and found to be within normal limits, except as documented in this note. Current Medications Current Medications Current Medications Medications (Trade) Dose Ordered Sig/Therese Start Time Stop Time Status Last Admin Dose Admin Ondansetron HCl (Zofran) 4 mg 1X ONCE 01/04/19 13:30 01/04/19 13:31 DC Sodium Chloride 1,000 ml @ 1,000 mls/hr 1X ONCE 01/04/19 13:30 01/04/19 14:29 DC 01/04/19 13:44 1,000 MLS/HR Allergies Allergies Allergies Coded Allergies Type Severity Reaction Last Updated Verified No Known Drug Allergies 12/03/13 No Physical Exam Physical Exam Constitutional: Well developed, well nourished, no acute distress, non-toxic appearance. [] HENT: Normocephalic, atraumatic, bilateral external ears normal, oropharynx moist, no oral exudates, nose normal. [] Eyes: PERRLA, EOMI, conjunctiva normal, no discharge. [] Neck: Normal range of motion, no tenderness, supple, no stridor. [] Cardiovascular:Heart rate regular rhythm, no murmur [] Lungs & Thorax: Bilateral breath sounds clear to auscultation [] Abdomen: Bowel sounds normal, soft, mild lower abdominal tenderness, no masses, no pulsatile masses. [] Skin: Warm, dry, no erythema, no rash. [] Back: No tenderness, no CVA tenderness. [] Extremities: No tenderness, no cyanosis, no clubbing, ROM intact, no edema. [] Neurologic: Alert and oriented X 3, normal motor function, normal sensory function, no focal deficits noted. [] Psychologic: Affect normal, judgement normal, mood normal. [] Pelvic Exam: External exam is normal and without rash, No CMT, OS is closed,mild white discharge, uterus NTTP, No adnexal masses or tenderness noted. STD testing sent. Current Patient Data Vital Signs Vital Signs Date Time Temp Pulse Resp B/P (MAP) Pulse Ox O2 Delivery O2 Flow Rate FiO2 01/04/19 12:23 97.5 70 18 147/94 (111) 98 Room Air 97.5 Lab Values Laboratory Tests Test 01/04/19 12:16 01/04/19 12:24 White Blood Count 8.4 x10^3/uL (4.0-11.0) Red Blood Count 4.50 x10^6/uL (3.50-5.40) Hemoglobin 12.1 g/dL (12.0-15.5) Hematocrit 36.7 % (36.0-47.0) Mean Corpuscular Volume 82 fL (79-100) Mean Corpuscular Hemoglobin 27 pg (25-35) Mean Corpuscular Hemoglobin Concent 33 g/dL (31-37) Red Cell Distribution Width 16.1 % (11.5-14.5) H Platelet Count 398 x10^3/uL (140-400) Neutrophils (%) (Auto) 53 % (31-73) Lymphocytes (%) (Auto) 37 % (24-48) Monocytes (%) (Auto) 7 % (0-9) Eosinophils (%) (Auto) 3 % (0-3) Basophils (%) (Auto) 1 % (0-3) Neutrophils # (Auto) 4.4 x10^3/uL (1.8-7.7) Lymphocytes # (Auto) 3.1 x10^3/uL (1.0-4.8) Monocytes # (Auto) 0.6 x10^3/uL (0.0-1.1) Eosinophils # (Auto) 0.2 x10^3/uL (0.0-0.7) Basophils # (Auto) 0.0 x10^3/uL (0.0-0.2) Urine Collection Type Unknown Urine Color Yellow Urine Clarity Clear Urine pH 8.0 Urine Specific [place] 1.020 Urine Protein Negative mg/dL (NEG-TRACE) Urine Glucose (UA) Negative mg/dL (NEG) Urine Ketones (Stick) Negative mg/dL (NEG) Urine Blood Negative (NEG) Urine Nitrite Negative (NEG) Urine Bilirubin Negative (NEG) Urine Urobilinogen Dipstick 1.0 mg/dL (0.2 mg/dL) Urine Leukocyte Esterase Large (NEG) Urine RBC 0 /HPF (0-2) Urine WBC 11-20 /HPF (0-4) Urine Squamous Epithelial Cells Many /LPF Urine Bacteria Many /HPF (0-FEW) Urine Mucus Mod /LPF Maternal Serum HCG Beta Subunit 573 mIU/mL (0-5) H Sodium Level 138 mmol/L (136-145) Potassium Level 3.9 mmol/L (3.5-5.1) Chloride Level 105 mmol/L (98-107) Carbon Dioxide Level 26 mmol/L (21-32) Anion Gap 7 (6-14) Blood Urea Nitrogen 9 mg/dL (7-20) Creatinine 0.6 mg/dL (0.6-1.0) Estimated GFR (Cockcroft-Gault) 139.3 BUN/Creatinine Ratio 15 (6-20) Glucose Level 66 mg/dL (70-99) L Calcium Level 9.0 mg/dL (8.5-10.1) Total Bilirubin 0.3 mg/dL (0.2-1.0) Aspartate Amino Transferase (AST) 24 U/L (15-37) Alanine Aminotransferase (ALT) 60 U/L (14-59) H Alkaline Phosphatase 87 U/L (46-116) Total Protein 7.7 g/dL (6.4-8.2) Albumin 3.2 g/dL (3.4-5.0) L Albumin/Globulin Ratio 0.7 (1.0-1.7) L POC Urine HCG, Qualitative Hcg positive (Negative) Laboratory Tests 01/04/19 12:16 Laboratory Tests 01/04/19 12:16 Microbiology 01/04/19 Wet Prep - Final, Complete EKG EKG [] Radiology/Procedures Radiology/Procedures [][facility] [address] [place] [address] IMAGING REPORT Signed PATIENT: BULL ENAMORADO ACCOUNT: [id number] : 1985 LOCATION: ER AGE: 33 SEX: F EXAM STATUS: REG ER ORD. PHYSICIAN: GITA JESUS APRN REASON: abd pain/vaginal spotting, PROCEDURE: OB TRANSVAG Examination: Obstetric ultrasound HISTORY: History of vaginal spotting, abdominal pain COMPARISON: 12/28/2018 FINDINGS: The uterus measures 9.4 x 5.8 x 4.2 cm. The endometrium measures 1 cm in thickness. The right ovary measures 2.6 x 2.7 x 1.4 cm. The left ovary measures 3.9 x 2.7 x 2.2 cm. Blood flow identified in the right and left ovaries. IMPRESSION: No evidence of intrauterine gestational sac. Differential includes failed first trimester , very early or ectopic . An ectopic gestational sac is not evident. Correlate with serial quantitative beta-hCG levels and close interval follow-up ultrasound examination. Electronically signed by: Devan Rojas MD (01/04/2019 3:06 PM) [facility] DICTATED and SIGNED BY: DEVAN ROJAS MD DATE: 01/04/19 1506 Course & Med Decision Making Course & Med Decision Making Pertinent Labs and Imaging studies reviewed. (See chart for details) Will get labs, UA, test (positive), ultrasound, and send STD testing. Labs are unremarkable. Urine shows leukocytes will place on Keflex. Wet Prep shows bacterial vaginosis will treat. Ultrasound shows that there is no intrauterine sac but may be too early to be seen. Will have follow up with OB on Tuesday. Dragon Disclaimer Dragon Disclaimer This electronic medical record was generated, in whole or in part, using a voice recognition dictation system. Departure Departure Impression: Primary Impression: Urinary tract infection during Additional Impression: Bacterial vaginosis in Disposition: HOME, SELF-CARE Condition: STABLE Referrals: NO PCP (PCP) Patient Instructions: Bacterial Vaginosis, - Urinary Tract Infection Additional Instructions: Thank you for visiting [facility]. We appreciate you trusting us with your care. If any additional problems come up don't hesitate to return to visit us. Please follow up with your primary care provider so they can plan additional care if needed and know about the problem that you had. If symptoms worsen come back to the Emergency Department. Any concerning symptoms that start such as chest pain, shortness of air, weakness or numbness on one side of the body, running high fevers or any other concerning symptoms return to the ER. You have been prescribed an antibiotic today to help fight your infection. Please take all of the antibiotic as directed. If after 48 hours the infection is not improving, please return for more care. If the infection worsens, return to ER for additional care. Please fill your medications at any pharmacy and follow the prescription instructions. Scripts Metronidazole (METRONIDAZOLE) 500 Mg Tablet 1 TAB PO BID for 7 Days, #14 TAB Prov: GITA JESUS APRN 01/04/19 Cephalexin (KEFLEX) 500 Mg Capsule 1 CAP PO BID for 7 Days, #14 CAP Prov: GITA JESUS APRN 01/04/19 Problem Qualifiers Primary Impression: Urinary tract infection during Trimester: first trimester Qualified Codes: O23.41 - Unspecified infection of urinary tract in , first trimester GITA JESUS APRN Jan 04, 2019 13:36
[2019-01-04 13:41] LABS: ALBUMIN 3.2 g/dL (3.4-5.0); ALBUMIN/GLOBULIN RATIO 0.7 (1.0-1.7); TOTAL BILIRUBIN 0.3 mg/dL (0.2-1.0); TOTAL PROTEIN 7.7 g/dL (6.4-8.2)
[2019-01-04 13:51] LABS: BILIRUBIN,URINE NEGATIVE (NEG); CLARITY,URINE CLEAR; COLOR,URINE YELLOW; NITRITE,URINE NEGATIVE (NEG); PROTEIN,URINE NEGATIVE (NEG-TRACE)
[2019-01-04 14:00] LABS: BACTERIA,URINE MANY /HPF (0-FEW); SQUAMOUS EPITHELIAL CELL,UR MANY /LPF
[2019-01-04 14:01] LABS: RBC,URINE 0 /HPF (0-2)
--- NOTE | 2019-01-04 15:09 | RAD ---
Examination: Obstetric ultrasound HISTORY: History of vaginal spotting, abdominal pain COMPARISON: 12/28/2018 FINDINGS: The uterus measures 9.4 x 5.8 x 4.2 cm. The endometrium measures 1 cm in thickness. The right ovary measures 2.6 x 2.7 x 1.4 cm. The left ovary measures 3.9 x 2.7 x 2.2 cm. Blood flow identified in the right and left ovaries. IMPRESSION: No evidence of intrauterine gestational sac. Differential includes failed first trimester , very early or ectopic . An ectopic gestational sac is not evident. Correlate with serial quantitative beta-hCG levels and close interval follow-up ultrasound examination. Electronically signed by: Devan Rojas MD (01/04/2019 3:06 PM) [id number]
[2019-01-04] MEDS ORDERED: METR-34 PO (15:51)
[2019-01-04] MEDS ORDERED: CEPH-264 PO (15:51)
[2019-01-05 17:09] LABS: GC PROBE Negative (Negative)
== END 2019-01-04 16:50 | disposition home or self-care (01) ==
LOC: ER 11:48
DX: O23.41 Unspecified infection of urinary tract in pregnancy, first trimester (principal); O23.591 Infection of other part of genital tract in pregnancy, first trimester; B96.89 Other specified bacterial agents as the cause of diseases classified elsewhere; O16.1 Unspecified maternal hypertension, first trimester; Z3A.01 Less than 8 weeks gestation of pregnancy
CPT/HCPCS: 36415; 76817; 80053; 81001; 81025; 84702; 85025; 86900; 86901; 87086; 87491; 87591; 99285; J7030; Q0111

== ENCOUNTER 2019-01-06 18:10 | Emergency (ER) | payer SELFPAY ==
[~2019-01-06] VITALS: Ht 175.3 cm; Wt 167.8 kg
[~2019-01-06 18:10] MED LIST changes: +METR-34 PO
[2019-01-06 18:43] LABS: BILIRUBIN,URINE MODERATE (NEG); COLOR,URINE RED; NITRITE,URINE NEGATIVE (NEG); PH,URINE 5.5; PROTEIN,URINE 100 mg/dL (NEG-TRACE)
[2019-01-06 18:49] LABS: CLARITY,URINE BLOODY
[2019-01-06 18:51] LABS: BACTERIA,URINE 0 /HPF (0-FEW); RBC,URINE TNTC /HPF (0-2); SQUAMOUS EPITHELIAL CELL,UR MOD /LPF
[2019-01-06 19:06] LABS: BASO % 0 % (0-3); EOS # 0.1 x10^3/uL (0.0-0.7); EOS % 1 % (0-3); HEMATOCRIT 36.5 % (36.0-47.0); HEMOGLOBIN 12.4 g/dL (12.0-15.5); LYMPH # 2.4 x10^3/uL (1.0-4.8); LYMPH % 25 % (24-48); MEAN CORPUSCULAR HEMOGLOBIN 28 pg (25-35); MEAN CORPUSCULAR HGB CONC 34 g/dL (31-37); MEAN CORPUSCULAR VOLUME 81 fL (79-100); MONO # 0.6 x10^3/uL (0.0-1.1); MONO % 7 % (0-9); NEUT # 6.4 x10^3/uL (1.8-7.7); NEUT % 67 % (31-73); PLATELET COUNT 382 x10^3/uL (140-400); RED BLOOD COUNT 4.52 x10^6/uL (3.50-5.40); RED CELL DISTRIBUTION WIDTH 15.7 % (11.5-14.5); WHITE BLOOD COUNT 9.5 x10^3/uL (4.0-11.0)
[2019-01-06 19:12] LABS: CALCIUM 9.4 mg/dL (8.5-10.1); CREATININE 0.7 mg/dL (0.6-1.0); GFR 116.6; POTASSIUM 3.7 mmol/L (3.5-5.1)
[2019-01-06 19:18] LABS: ALBUMIN 3.3 g/dL (3.4-5.0); ALBUMIN/GLOBULIN RATIO 0.7 (1.0-1.7); TOTAL BILIRUBIN 0.3 mg/dL (0.2-1.0)
--- NOTE | 2019-01-06 19:30 | PHYS DOC ---
Past Medical History Past Medical History: Hypertension (SANYA FLORES PROTOCOL OFFICER) Past Surgical History: No Surgical History Additional Past Surgical Histo: leep (SANYA FLORES PROTOCOL OFFICER) Alcohol Use: None Drug Use: None (SANYA FLORES APRN) Adult General Chief Complaint Chief Complaint: VAGINAL BLEEDING HPI HPI Patient is a 33 year old Female who presents with was here 2 days ago with vaginal spotting states her last period was in October. Patient states she cannot remember the exact day. Patient states that she has a appointment with the women's clinic on this coming Tuesday. Patient states she is back today because the bleeding has increased and she is having clots. Patient states she does not know what size clot she just has seen clots. Patient denies any abdominal pain. (SANYA FLORES PROTOCOL OFFICER) Review of Systems Review of Systems Constitutional: Denies fever or chills [] Eyes: Denies change in visual acuity, redness, or eye pain [] HENT: Denies nasal congestion or sore throat [] Respiratory: Denies cough or shortness of breath [] Cardiovascular: No additional information not addressed in HPI [] GI: Denies abdominal pain, nausea, vomiting, bloody stools or diarrhea [] : Vaginal bleeding. Denies dysuria or hematuria [] Musculoskeletal: Denies back pain or joint pain [] Integument: Denies rash or skin lesions [] Neurologic: Denies headache, focal weakness or sensory changes [] Endocrine: Denies polyuria or polydipsia [] All other systems were reviewed and found to be within normal limits, except as documented in this note. (SANYA FLORES PROTOCOL OFFICER) Allergies Allergies Allergies Coded Allergies Type Severity Reaction Last Updated Verified No Known Drug Allergies 12/03/13 No (GITA SWANN DO) Physical Exam Physical Exam Constitutional: Well developed, well nourished, no acute distress, non-toxic appearance. [] HENT: Normocephalic, atraumatic, bilateral external ears normal, oropharynx moist, no oral exudates, nose normal. [] Eyes: PERRLA, EOMI, conjunctiva normal, no discharge. [] Neck: Normal range of motion, no tenderness, supple, no stridor. [] Cardiovascular:Heart rate regular rhythm, no murmur [] Lungs & Thorax: Bilateral breath sounds clear to auscultation [] Abdomen: Vaginal bleeding see with pelvic exam. Bowel sounds normal, soft, no tenderness, no masses, no pulsatile masses. [] Skin: Warm, dry, no erythema, no rash. [] Back: No tenderness, no CVA tenderness. [] Extremities: No tenderness, no cyanosis, no clubbing, ROM intact, no edema. [] Neurologic: Alert and oriented X 3, normal motor function, normal sensory function, no focal deficits noted. [] Psychologic: Affect normal, judgement normal, mood normal. [] (SANDRA,SANYA Elizabeth APRN) Current Patient Data Vital Signs Vital Signs Date Time Temp Pulse Resp B/P (MAP) Pulse Ox O2 Delivery O2 Flow Rate FiO2 01/06/19 19:48 80 14 144/101 (115) 01/06/19 18:29 97.8 95 Room Air 97.8 (SWANN,GITA R DO) Lab Values Laboratory Tests Test 01/06/19 18:24 01/06/19 18:50 Urine Collection Type Unknown Urine Color Red Urine Clarity Bloody Urine pH 5.5 Urine Specific [place] 1.020 Urine Protein 100 mg/dL (NEG-TRACE) Urine Glucose (UA) Negative mg/dL (NEG) Urine Ketones (Stick) Trace mg/dL (NEG) Urine Blood Large (NEG) Urine Nitrite Negative (NEG) Urine Bilirubin Moderate (NEG) Urine Urobilinogen Dipstick 1.0 mg/dL (0.2 mg/dL) Urine Leukocyte Esterase Moderate (NEG) Urine RBC Tntc /HPF (0-2) Urine WBC 5-10 /HPF (0-4) Urine Squamous Epithelial Cells Mod /LPF Urine Bacteria 0 /HPF (0-FEW) Urine Mucus Marked /LPF White Blood Count 9.5 x10^3/uL (4.0-11.0) Red Blood Count 4.52 x10^6/uL (3.50-5.40) Hemoglobin 12.4 g/dL (12.0-15.5) Hematocrit 36.5 % (36.0-47.0) Mean Corpuscular Volume 81 fL (79-100) Mean Corpuscular Hemoglobin 28 pg (25-35) Mean Corpuscular Hemoglobin Concent 34 g/dL (31-37) Red Cell Distribution Width 15.7 % (11.5-14.5) H Platelet Count 382 x10^3/uL (140-400) Neutrophils (%) (Auto) 67 % (31-73) Lymphocytes (%) (Auto) 25 % (24-48) Monocytes (%) (Auto) 7 % (0-9) Eosinophils (%) (Auto) 1 % (0-3) Basophils (%) (Auto) 0 % (0-3) Neutrophils # (Auto) 6.4 x10^3/uL (1.8-7.7) Lymphocytes # (Auto) 2.4 x10^3/uL (1.0-4.8) Monocytes # (Auto) 0.6 x10^3/uL (0.0-1.1) Eosinophils # (Auto) 0.1 x10^3/uL (0.0-0.7) Basophils # (Auto) 0.0 x10^3/uL (0.0-0.2) Maternal Serum HCG Beta Subunit 466 mIU/mL (0-5) H Sodium Level 140 mmol/L (136-145) Potassium Level 3.7 mmol/L (3.5-5.1) Chloride Level 105 mmol/L (98-107) Carbon Dioxide Level 25 mmol/L (21-32) Anion Gap 10 (6-14) Blood Urea Nitrogen 10 mg/dL (7-20) Creatinine 0.7 mg/dL (0.6-1.0) Estimated GFR (Cockcroft-Gault) 116.6 BUN/Creatinine Ratio 14 (6-20) Glucose Level 93 mg/dL (70-99) Calcium Level 9.4 mg/dL (8.5-10.1) Total Bilirubin 0.3 mg/dL (0.2-1.0) Aspartate Amino Transferase (AST) 21 U/L (15-37) Alanine Aminotransferase (ALT) 47 U/L (14-59) Alkaline Phosphatase 86 U/L (46-116) Total Protein 8.0 g/dL (6.4-8.2) Albumin 3.3 g/dL (3.4-5.0) L Albumin/Globulin Ratio 0.7 (1.0-1.7) L Laboratory Tests 01/06/19 18:50 Laboratory Tests 01/06/19 18:50 (GITA SWANN DO) EKG EKG [] (SANYA FLORES APRN) Radiology/Procedures Radiology/Procedures [] (SANYA FLORES APRN) Course & Med Decision Making Course & Med Decision Making Patient is a 33 year old Female who presents with was here 2 days ago with vaginal spotting states her last period was in October. Patient states she cannot remember the exact day. Patient states that she has a appointment with the women's clinic on this coming Tuesday. Patient states she is back today because the bleeding has increased and she is having clots. Patient states she does not know what size clot she just has seen clots. Patient denies any abdominal pain. On January 04 2 days ago patient had a OB ultrasound that stated that there was no sac found at this time. When looking back in the lifetime summary for labs I could not see where they did a type and screen but lab called and stated that they did do a type and screen and she is O+. Abdomen is soft and nontender. Patient denies any dysuria symptoms. Patient is currently being treated for urinary tract infection with Keflex and bacterial vaginosis with metronidazole. Patient denies fevers, nausea, vomiting, diarrhea, abdominal pain, chest pain, shortness of air, extremity swelling. Alert and oriented. Speaks in full clear sentences. Skin is pink warm and dry. Mucous membranes moist. Urinalysis today is better then 2 days ago so the antibiotic seems to be wo rking. Patient to continue taking both of her antibiotics. Beta serum hCG on January 04 was 573 and today it is 466 so it is declining. This suggests that she is having a miscarriage. Blood work is unremarkable. Patient to follow up as scheduled at the women's clinic. 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 Bimanual: No adnexal masses or tenderness, No CMT (SANYA FLORES APRN) Dragon Disclaimer Dragon Disclaimer This electronic medical record was generated, in whole or in part, using a voice recognition dictation system. (SAYNA FLORES APRN) Departure Departure Impression: Primary Impression: Vaginal bleeding in Disposition: HOME, SELF-CARE Condition: STABLE Referrals: NO PCP (PCP) Patient Instructions: Threatened Miscarriage, Vaginal Bleeding During , First Trimester Additional Instructions: Follow-up as scheduled with the women's clinic. Drink plenty of fluids. Continue taking your antibiotics. Attending Signature Attending Signature I have reviewed the PA/[employer] WARDEN's note and plan of care. I was available for consultation as needed during the patient's visit in the emergency department. I agree with the clinical impression, plan, and disposition. (GITA SWANN DO) SANYA FLORES APRN Jan 06, 2019 19:29 GITA SWANN DO Jan 07, 2019 01:11
[2019-01-06 19:48] VITALS: BP 144/101
== END 2019-01-06 19:49 | disposition home or self-care (01) ==
LOC: ER 18:10
DX: O20.8 Other hemorrhage in early pregnancy (principal); O16.1 Unspecified maternal hypertension, first trimester; Z3A.00 Weeks of gestation of pregnancy not specified
CPT/HCPCS: 36415; 80053; 81001; 84702; 85025; 87086; 99284

== ENCOUNTER 2019-06-12 23:41 | Emergency (ER) | payer SELFPAY ==
[~2019-06-12] VITALS: Ht 185.4 cm; Wt 170.1 kg
--- NOTE | 2019-06-13 00:15 | PHYS DOC ---
Past Medical History Past Medical History: Hypertension Additional Past Medical Histor: obesity (EDMUND MOTA APRN) Past Surgical History: No Surgical History Additional Past Surgical Histo: leep (EDMUND MOTA APRN) Alcohol Use: None Drug Use: None (EDMUND MOTA APRN) Adult General Chief Complaint Chief Complaint: LOWER EXT PAIN [facility] HPI Patient is a 34 year old AA female who presents to the emergency department wit h complaints of a syncopal episode that happened this evening prior to arrival. Patient states she has been having pain in her left leg and left foot for the last 2 days. She denies any injury to her foot or leg, the pain in her left foot is worse when she stands and shoots up her left leg. Tonight after work she had laid down for a little bit and when she got up, she reports a sudden onset of not being able to feel her lower left extremity and inability to move the LLE or bear weightt. Patient states she then noticed that her entire left side felt numb so she called 911. Patient states while she was on the phone with 911 she started to have problems remembering why she called them and then she passed out. Patient states that EMS arrived after her syncopal episode. She reports when EMS arrived she had elevated blood pressure. Patient states that during the syncopal episode she was incontinent of urine. She denies any vision changes, headache, fever, chest pain, or palpitations prior to the syncope. Patient denies any history of blood clots, use of any contraceptives, nicotine use, or illicit drug use. She currently denies any complaints, she denies any pain. All other ROS is neg unless otherwise noted in HPI. (EDMUND MOTA WHEELABRATOR OPERATOR) Review of Systems Review of Systems See Above (EDMUND MOTA APRN) Allergies Allergies Allergies Coded Allergies Type Severity Reaction Last Updated Verified No Known Drug Allergies 12/03/13 No (NNAMDI ARAGON Jr. DO) Physical Exam Physical Exam See Above Constitutional: Well developed, well nourished, no acute distress, non-toxic appearance, obese. [] HENT: Normocephalic, atraumatic, bilateral external ears normal, oropharynx moist, no oral exudates, nose normal. [] Eyes: PERRLA, EOMI, conjunctiva normal, no discharge. [] Neck: Normal range of motion, no stridor. [] Cardiovascular:Heart rate regular rhythm, no murmur [] Lungs & Thorax: Bilateral breath sounds clear to auscultation, Respirations even and unlabored, no retractions, no respiratory distress [] Abdomen: soft, no tenderness, no masses, no pulsatile masses. [] Skin: Warm, dry, no erythema, no rash. [] Back: No tenderness Extremities: No tenderness, no cyanosis, no clubbing, ROM intact, no edema. [] Neurologic: Alert and oriented X 3, normal motor function, normal sensory function, CN II- CN VII intact, speech clear, no focal deficits noted, normal strength of extremities x4, no ataxia [] Psychologic: Affect normal, judgement normal, mood normal. [] (EDMUND MOTA APRN) Current Patient Data Vital Signs Vital Signs Date Time Temp Pulse Resp B/P (MAP) Pulse Ox O2 Delivery O2 Flow Rate FiO2 06/13/19 00:03 98.2 82 16 149/94 (112) 98 Room Air 98.2 (NNAMDI ARAGON . DO) Lab Values Laboratory Tests Test 06/13/19 00:20 06/13/19 00:30 06/13/19 00:34 Urine Collection Type Unknown Urine Color Yellow Urine Clarity Clear Urine pH 7.5 Urine Specific [place] 1.015 Urine Protein Negative mg/dL (NEG-TRACE) Urine Glucose (UA) Negative mg/dL (NEG) Urine Ketones (Stick) Negative mg/dL (NEG) Urine Blood Negative (NEG) Urine Nitrite Negative (NEG) Urine Bilirubin Negative (NEG) Urine Urobilinogen Dipstick 0.2 mg/dL (0.2 mg/dL) Urine Leukocyte Esterase Negative (NEG) Urine RBC 1-2 /HPF (0-2) Urine WBC 1-4 /HPF (0-4) Urine Squamous Epithelial Cells Few /LPF Urine Bacteria Few /HPF (0-FEW) Urine Opiates Screen Neg (NEG) Urine Methadone Screen Neg (NEG) Urine Barbiturates Neg (NEG) Urine Phencyclidine Screen Neg (NEG) Urine Amphetamine/Methamphetamine Neg (NEG) Urine Benzodiazepines Screen Neg (NEG) Urine Cocaine Screen Neg (NEG) Urine Cannabinoids Screen Neg (NEG) Urine Ethyl Alcohol Neg (NEG) White Blood Count 8.9 x10^3/uL (4.0-11.0) Red Blood Count 4.41 x10^6/uL (3.50-5.40) Hemoglobin 11.9 g/dL (12.0-15.5) L Hematocrit 35.6 % (36.0-47.0) L Mean Corpuscular Volume 81 fL (79-100) Mean Corpuscular Hemoglobin 27 pg (25-35) Mean Corpuscular Hemoglobin Concent 34 g/dL (31-37) Red Cell Distribution Width 14.8 % (11.5-14.5) H Platelet Count 407 x10^3/uL (140-400) H Neutrophils (%) (Auto) 58 % (31-73) Lymphocytes (%) (Auto) 31 % (24-48) Monocytes (%) (Auto) 8 % (0-9) Eosinophils (%) (Auto) 3 % (0-3) Basophils (%) (Auto) 1 % (0-3) Neutrophils # (Auto) 5.2 x10^3/uL (1.8-7.7) Lymphocytes # (Auto) 2.7 x10^3/uL (1.0-4.8) Monocytes # (Auto) 0.7 x10^3/uL (0.0-1.1) Eosinophils # (Auto) 0.3 x10^3/uL (0.0-0.7) Basophils # (Auto) 0.0 x10^3/uL (0.0-0.2) Prothrombin Time 13.4 SEC (11.7-14.0) Prothrombin Time INR 1.1 (0.8-1.1) Activated Partial Thromboplast Time 36 SEC (24-38) Sodium Level 141 mmol/L (136-145) Potassium Level 3.7 mmol/L (3.5-5.1) Chloride Level 104 mmol/L (98-107) Carbon Dioxide Level 32 mmol/L (21-32) Anion Gap 5 (6-14) L Blood Urea Nitrogen 11 mg/dL (7-20) Creatinine 0.7 mg/dL (0.6-1.0) Estimated GFR (Cockcroft-Gault) 115.9 BUN/Creatinine Ratio 16 (6-20) Glucose Level 90 mg/dL (70-99) Calcium Level 9.4 mg/dL (8.5-10.1) Magnesium Level 1.9 mg/dL (1.8-2.4) Total Bilirubin 0.3 mg/dL (0.2-1.0) Aspartate Amino Transferase (AST) 26 U/L (15-37) Alanine Aminotransferase (ALT) 38 U/L (14-59) Alkaline Phosphatase 90 U/L (46-116) Troponin I Quantitative < 0.017 ng/mL (0.000-0.055) Total Protein 7.9 g/dL (6.4-8.2) Albumin 3.4 g/dL (3.4-5.0) Albumin/Globulin Ratio 0.8 (1.0-1.7) L POC Urine HCG, Qualitative Hcg negative (Negative) Laboratory Tests 06/13/19 00:30 Laboratory Tests 06/13/19 00:30 (NNAMDI ARAGON Jr., DO) Lab Values Laboratory Tests Test 06/13/19 00:34 POC Urine HCG, Qualitative Hcg negative (Negative) (EDMUND MOTA APRN) EKG EKG [] (EDMUND MOTA APRN) Radiology/Procedures Radiology/Procedures [] (EDMUND MOTA APRN) Impressions: PROCEDURE: CT HEAD WO CONTRAST CT brain without contrast. HISTORY: Syncopal episode, transiently unable to move left lower extremity CT scan of brain was done without contrast. Sinuses are clear. A skull fracture is not identified. There is no intracranial hemorrhage or subdural hematoma. There is no mass or shift of the midline. An acute CVA is not identified. Ventricles are normal in size. IMPRESSION: 1. No intracranial hemorrhage or acute finding noted. (NNAMDI ARAGON Jr., DO) Course & Med Decision Making Course & Med Decision Making Pertinent Labs and Imaging studies reviewed. (See chart for details) 0053- patient is a 34-year-old -[place] female who presents to the emergency department after a syncopal episode this evening. History and physical exam is concerning for a TIA. Patient's vital signs are stable. I have ordered a head CT, labs, UA, and EKG. Report is given to Dr. Aragon at this time for further evaluation of patient and interpretation of these results. Differential includes TIA, CVA, syncope [] (EDMUND MOTA APRN) Dragon Disclaimer Dragon Disclaimer This electronic medical record was generated, in whole or in part, using a voice recognition dictation system. (EDMUND MOTA APRN) Departure Departure Impression: Primary Impression: Syncope Additional Impressions: Leg pain Urinary incontinence Disposition: 01 HOME, SELF-CARE Condition: STABLE Referrals: NO PCP (PCP) Patient Instructions: Leg Cramps, Syncope, Urinary Incontinence-Brief Problem Qualifiers Primary Impression: Syncope Syncope type: unspecified Qualified Codes: R55 - Syncope and collapse Additional Impressions: Leg pain Laterality: unspecified laterality Qualified Codes: M79.606 - Pain in leg, unspecified Urinary incontinence Urinary Incontinence type: unspecified incontinence Qualified Codes: R32 - Unspecified urinary incontinence EDMUND MOTA APRN Jun 13, 2019 00:15 NNAMDI ARAGON Jr., DO Jun 13, 2019 01:54
[2019-06-13 00:45] LABS: BILIRUBIN,URINE NEGATIVE (NEG); CLARITY,URINE CLEAR; COLOR,URINE YELLOW; NITRITE,URINE NEGATIVE (NEG); PH,URINE 7.5; PROTEIN,URINE NEGATIVE (NEG-TRACE); UROBILINOGEN,URINE 0.2 mg/dL (0.2 mg/dL)
[2019-06-13 00:47] LABS: BASO % 1 % (0-3); EOS # 0.3 x10^3/uL (0.0-0.7); EOS % 3 % (0-3); HEMATOCRIT 35.6 % (36.0-47.0); HEMOGLOBIN 11.9 g/dL (12.0-15.5); LYMPH # 2.7 x10^3/uL (1.0-4.8); LYMPH % 31 % (24-48); MEAN CORPUSCULAR HEMOGLOBIN 27 pg (25-35); MEAN CORPUSCULAR HGB CONC 34 g/dL (31-37); MEAN CORPUSCULAR VOLUME 81 fL (79-100); MONO # 0.7 x10^3/uL (0.0-1.1); MONO % 8 % (0-9); NEUT # 5.2 x10^3/uL (1.8-7.7); NEUT % 58 % (31-73); PLATELET COUNT 407 x10^3/uL (140-400); RED BLOOD COUNT 4.41 x10^6/uL (3.50-5.40); RED CELL DISTRIBUTION WIDTH 14.8 % (11.5-14.5); WHITE BLOOD COUNT 8.9 x10^3/uL (4.0-11.0)
[2019-06-13 00:52] LABS: BARBITURATES NEG (NEG); BENZODIAZEPINES NEG (NEG); CANNABINOIDS NEG (NEG); COCAINE NEG (NEG); METHADONE NEG (NEG); OPIATES NEG (NEG); PHENCYCLIDINE NEG (NEG)
[2019-06-13 00:53] LABS: AMPHETAMINE/METHAMPHETAMINE NEG (NEG)
[2019-06-13 00:53] LABS: CALCIUM 9.4 mg/dL (8.5-10.1); CREATININE 0.7 mg/dL (0.6-1.0); GFR 115.9; POTASSIUM 3.7 mmol/L (3.5-5.1)
[2019-06-13 00:54] LABS: BACTERIA,URINE FEW /HPF (0-FEW); SQUAMOUS EPITHELIAL CELL,UR FEW /LPF
[2019-06-13 00:58] LABS: PROTHROMBIN TIME PATIENT 13.4 SEC (11.7-14.0)
[2019-06-13 01:00] LABS: ALBUMIN 3.4 g/dL (3.4-5.0); ALBUMIN/GLOBULIN RATIO 0.8 (1.0-1.7); MAGNESIUM 1.9 mg/dL (1.8-2.4); TOTAL BILIRUBIN 0.3 mg/dL (0.2-1.0); TOTAL PROTEIN 7.9 g/dL (6.4-8.2)
--- NOTE | 2019-06-13 01:28 | RAD ---
CT brain without contrast. HISTORY: Syncopal episode, transiently unable to move left lower extremity CT scan of brain was done without contrast. Sinuses are clear. A skull fracture is not identified. There is no intracranial hemorrhage or subdural hematoma. There is no mass or shift of the midline. An acute CVA is not identified. Ventricles are normal in size. IMPRESSION: 1. No intracranial hemorrhage or acute finding noted. PQRS Compliance Statement: One or more of the following individualized dose reduction techniques were utilized for this examination: 1. Automated exposure control 2. Adjustment of the mA and/or kV according to patient size 3. Use of iterative reconstruction technique Electronically signed by: Dc Yates MD (06/13/2019 1:25 AM) [facility]
[2019-06-13 01:44] VITALS: BP 151/83
--- NOTE | 2019-06-13 06:34 | EKG ---
[facility] [address] [place] [address] Test Date: 2019-06-13 Test Time: 00:28:56 Pat Name: BULL ENAMORADO Department: Room: Gender: F Service Line Layer: : 1985 Requested By: EDMUND MOTA Order Number: [id number] Reading MD: Measurements Intervals [place] Rate: 78 P: 50 CT: 162 QRS: 58 QRSD: 96 T: 31 QT: 402 QTc: 462 Interpretive Statements SINUS RHYTHM NORMAL ECG RI6.01 No previous ECG available for comparison
== END 2019-06-13 02:14 | disposition home or self-care (01) ==
LOC: ER 23:41
DX: R55 Syncope and collapse (principal); M79.672 Pain in left foot; R32 Unspecified urinary incontinence; I10 Essential (primary) hypertension; E66.9 Obesity, unspecified; Z68.42 Body mass index [BMI] 45.0-49.9, adult; Z98.890 Other specified postprocedural states
CPT/HCPCS: 36415; 70450; 80053; 80307; 81001; 81025; 83735; 84484; 85025; 85610; 85730; 93005; 99285

== ENCOUNTER 2019-07-26 05:53 | Emergency (ER) | payer SELFPAY ==
[~2019-07-26] VITALS: Ht 185.4 cm; Wt 141.4 kg
[~2019-07-26 05:53] MED LIST changes: +CLIN150C14 PO
--- NOTE | 2019-07-26 06:24 | PHYS DOC ---
Past Medical History Past Medical History: Cancer, Hypertension, Other Additional Past Medical Histor: cervical cancer, MORBIDLY OBESE Past Surgical History: Other Additional Past Surgical Histo: LEEP procedure Smoking Status: Never Smoker Alcohol Use: None Drug Use: None Adult General Chief Complaint Chief Complaint: FLU SYMPTOM HPI HPI Patient is a 34 year old female with history of hypertension, anxiety and depression, cervical cancer, morbid obesity who presents with complaining of flulike symptoms. Patient complaining of nonproductive cough, myalgia, subjective fever and chills for the last 3 days associated with nasal congestion and sore throat. Patient complaining of episodes of vomiting today after cough. She took her anxiety and blood pressure medication this morning but did not take anything for fever. Patient denies sick contact. Review of Systems Review of Systems Constitutional: Reports fever and chills Eyes: Denies change in visual acuity, redness, or eye pain [] HENT: Reports nasal congestion and sore throat Respiratory: Reports cough, denies shortness of breath Cardiovascular: No additional information not addressed in HPI [] GI: Denies abdominal pain, nausea, vomiting, bloody stools or diarrhea [] : Denies dysuria or hematuria [] Musculoskeletal: Denies back pain or joint pain [] Integument: Denies rash or skin lesions [] Neurologic: Denies headache, focal weakness or sensory changes [] Endocrine: Denies polyuria or polydipsia [] All other systems were reviewed and found to be within normal limits, except as documented in this note. Current Medications Current Medications Current Medications Medications (Trade) Dose Ordered Sig/Therese Start Time Stop Time Status Last Admin Dose Admin Acetaminophen (Tylenol) 650 mg 1X ONCE 07/26/19 06:30 07/26/19 06:31 DC 07/26/19 06:28 650 MG Acetaminophen/ Hydrocodone Bitart (Lortab 5/325) 1 tab 1X ONCE 07/26/19 06:30 07/26/19 06:31 DC 07/26/19 06:28 1 TAB Clonidine HCl (Catapres) 0.1 mg 1X ONCE 07/26/19 06:30 07/26/19 06:31 DC 07/26/19 06:29 0.1 MG Allergies Allergies Allergies Coded Allergies Type Severity Reaction Last Updated Verified No Known Drug Allergies 12/03/13 No Physical Exam Physical Exam Constitutional: Well developed, well nourished, mild distress, non-toxic appearance, morbidly obese, temperature 101.5. [] HENT: Normocephalic, atraumatic, bilateral external ears normal, oropharynx moist, pharyngeal erythema, no oral exudates, nose normal. [] Eyes: PERRLA, EOMI, conjunctiva normal, no discharge. [] Neck: Normal range of motion, no tenderness, supple, no stridor. [] Cardiovascular: Tachycardia, no murmur [] Lungs & Thorax: Bilateral breath sounds clear to auscultation [] Abdomen: Bowel sounds normal, soft, no tenderness, no masses, no pulsatile masses. [] Skin: Warm, dry, no erythema, no rash. [] Back: No tenderness, no CVA tenderness. [] Extremities: No tenderness, no cyanosis, no clubbing, ROM intact, no edema. [] Neurologic: Alert and oriented X 3, normal motor function, normal sensory function, no focal deficits noted. [] Psychologic: Affect normal, judgement normal, mood normal. [] Current Patient Data Vital Signs Vital Signs Date Time Temp Pulse Resp B/P (MAP) Pulse Ox O2 Delivery O2 Flow Rate FiO2 07/26/19 07:27 100.7 102 18 167/87 (113) 96 Room Air 100.7 Lab Values Laboratory Tests Test 07/26/19 06:05 Influenza Type A Antigen Positive (NEGATIVE) Influenza Type B Antigen Negative (NEGATIVE) EKG EKG [] Radiology/Procedures Radiology/Procedures [] Course & Med Decision Making Course & Med Decision Making Pertinent Labs reviewed. (See chart for details) Evaluation of patient in ER showed 34-year-old female patient with complaining of fever and cough and sore throat and flulike symptoms for 3 days. Patient had blood pressure of 190s and took amlodipine 5 mg prior to arrival to ER. Patient also had temperature of 101.5. Patient treated with [place], Tylenol, clonidine with improvement of blood pressure and tachycardia and fever. Patient had p ositive influenza A but was not a candidate for Tamiflu because of Tylenol to starting the symptom of 3 days ago. Patient was advised to increase fluid intake and take Tylenol and ibuprofen alternating for fever. I've spoken with the patient and/or caregivers. I've explained the patient's condition, diagnosis and treatment plan based on information available to me at this time. I've answered the patient's and/or caregivers questions and addressed any concerns. The patient and/or caregivers have a good understanding the patient's diagnosis, condition and treatment plan as can be expected at this point. Vital signs have been stabilized. The patient's condition is stable for discharge from the emergency department. The patient will pursue further outpatient evaluation with her primary care provider or other designated consulting physician as outlined in the discharge instructions. Patient and/or caregivers are agreeable to this plan of care and follow-up instructions have been explained in detail. The patient and/or caregivers have received these instructions in written format and expressed understanding of these discharge instructions. The patient and her caregivers are aware that if any significant change in condition or worsening of symptoms should prompt him to immediately return to this of the closest emergency department. If an emergent department is not readily available I would encourage him to call 911. Vincenzo Disclaimer Dragon Disclaimer This electronic medical record was generated, in whole or in part, using a voice recognition dictation system. Departure Departure Impression: Primary Impression: Influenza A Additional Impression: Accelerated hypertension Disposition: HOME, SELF-CARE (at 0710) Condition: IMPROVED Referrals: JAYLEEN BROWNE APRN (PCP) Patient Instructions: Cough, Adult, Fever, Adult, Form - Blood Pressure Record Sheet, How to Take Your Blood Pressure, [id number], Influenza A (H1N1), Influenza, Adult, Managing Your High Blood Pressure, Nausea and Vomiting Additional Instructions: Drink plenty of liquids Follow-up with your primary care physician in 3-5 days Return to ER if not getting better Alternate Tylenol and ibuprofen every 4 hours for fever and pain Thank you for visiting [facility]. We appreciate you trusting us with your care. If any additional problems come up don't hesitate to return to visit us. Please follow up with your primary care provider so they can plan additional care if needed and know about the problem that you had. If symptoms worsen come back to the Emergency Department. Any concerning symptoms that start such as chest pain, shortness of air, weakness or numbness on one side of the body, running high fevers or any other concerning symptoms return to the ER. Scripts Ondansetron Hcl (ZOFRAN) 4 Mg Tablet 1 TAB PO PRN Q6-8HRS for nausea, #12 TAB Prov: HEBER SO MD 07/26/19 Benzonatate (TESSALON PERLE) 100 Mg Capsule 1 CAP PO TID for cough, #21 CAP Prov: HEBER SO MD 07/26/19 Hydrocodone/Apap 5-325 (NORCO 5-325 TABLET) 1 Each Tablet 1 TAB PO PRN Q6HRS PRN for PAIN, #10 TAB 0 Refills Prov: HEBER SO MD 07/26/19 Problem Qualifiers HEBER SO MD Jul 26, 2019 06:24
[2019-07-26] MEDS ORDERED: ACETAMINOPHEN 325 MG TABLET. PO ONE (06:30)
[2019-07-26] MEDS ORDERED: cloNIDine HCL 0.1 MG TABLET PO ONE (06:30)
[2019-07-26] MEDS ORDERED: HYDROcodone/APAP 5/325MG 1 TAB TABLET PO ONE (06:30)
[2019-07-26 06:40] LABS: INFLUENZA B PATIENT NEGATIVE (NEGATIVE)
[2019-07-26 06:43] LABS: INFLUENZA A PATIENT POSITIVE (NEGATIVE)
[2019-07-26] MEDS ORDERED: HYDR-3164 PO (07:03)
[2019-07-26] MEDS ORDERED: BENZ100C PO (07:03)
[2019-07-26] MEDS ORDERED: ONDA4TAB7 PO (07:03)
[2019-07-26 07:27] VITALS: BP 167/87
== END 2019-07-26 07:30 | disposition home or self-care (01) ==
LOC: MERGE 05:53 → ER 05:53
DX: J10.1 Influenza due to other identified influenza virus with other respiratory manifestations (principal); R05 Cough; M79.10 Myalgia, unspecified site; R09.81 Nasal congestion; I10 Essential (primary) hypertension; E66.01 Morbid (severe) obesity due to excess calories; Z68.41 Body mass index [BMI] 40.0-44.9, adult; Z85.89 Personal history of malignant neoplasm of other organs and systems; Z98.890 Other specified postprocedural states
CPT/HCPCS: 87804; 99284

== ENCOUNTER 2020-03-05 08:17 | Emergency (ER) | payer SELFPAY ==
[~2020-03-05] VITALS: Ht 180.3 cm; Wt 163.0 kg
[~2020-03-05 08:17] MED LIST changes: +AMLO-186 PO; -AMLO5TAB10 PO; +ONDA4TAB7 PO
--- NOTE | 2020-03-05 08:26 | PHYS DOC ---
Past Medical History Past Medical History: Cancer, Hypertension, Other Additional Past Medical Histor: cervical cancer, MORBIDLY OBESE Past Surgical History: Other Additional Past Surgical Histo: LEEP procedure Smoking Status: Never Smoker Alcohol Use: None Drug Use: None General Adult EDM: Chief Complaint: HYPERTENSION HPI: HPI: 34F with PMH of HTN on amlodipine 5 mg daily, who presents for evaluation of headache. She reports a nearly 2-day history of throbbing left sided headache, worse than her typical headaches, beginning at rest. Reports noncompliance with her antihypertensive, and notes that her blood pressure has been running high, most recently 160s systolic prior to arrival. She took 1 tablet of her amlodipine 5 mg prior to arrival. She also reports feeling generally weak throughout. Denies vision changes, neck pain or stiffness, trauma, focal weakness or paresthesia, or thunderclap/exertional onset. Review of Systems: Review of Systems: Gen: No fever, chills. Eyes: No blurred vision, diplopia. ENT: No nasal congestion, sore throat. CV: No CP, palpitations. Resp. No SOB, cough. GI: No abd pain, N/V. : No dysuria, hematuria. Neuro: No dizziness.reports headache, mild generalized weakness. MSK: No myalgia, arthralgia, back pain. Skin: No acute rash or lesion. Heart Score: Risk Factors: Risk Factors: DM, Current or recent (<one month) smoker, HTN, HLP, family history of CAD, obesity. Risk Scores: Score 0 - 3: 2.5% MACE over next 6 weeks - Discharge Home Score 4 - 6: 20.3% MACE over next 6 weeks - Admit for Clinical Observation Score 7 - 10: 72.7% MACE over next 6 weeks - Early Invasive Strategies Allergies: Allergies: Allergies Coded Allergies Type Severity Reaction Last Updated Verified No Known Drug Allergies 12/03/13 No Physical Exam: PE: Gen: NAD. Well nourished. Head: NC/AT. Eyes: No scleral icterus. No conjunctival injection. PERRL. EOMI. ENT: MMM. Posterior OP clear. Neck: Supple. NT. No JVD. No meningismus. CV: RRR. Peripheral pulses intact. Resp: CTAB. Abd: Soft. NT. ND. MSK: No peripheral cyanosis. No edema. Neuro: A&Ox3. Strength & sensation grossly intact throughout. No dysmetria. No aphasia or dysarthria. No visual field cut. No facial asymmetry. GCS 15. Skin. Warm. Dry. Psych: Appropriate mood & affect. EKG: EKG: [] Radiology/Procedures: Radiology/Procedures: CT Head W/O Contrast: History: Reason: HEADACHE / Spl. Instructions: / History: Comparison: June 13, 2019 Axial images were obtained without contrast. The astudillo and white matter appears normal and symmetrical for the patients age. There is no mass effect, extraaxial fluid collections or hydrocephalus. There is no gross bleed. There is no focal loss of astudillo-white matter distinction to suggest acute ischemia, i.e. stroke. Impression: No acute findings. [facility] Compliance Statement: One or more of the following individualized dose reduction techniques were utilized for this examination: 1. Automated exposure control 2. Adjustment of the mA and/or kV according to patient size 3. Use of iterative reconstruction technique Electronically signed by: Danial Westfall III, MD (03/05/2020 9:11 AM) [id number] Course & Med Decision Making: Course & Med Decision Making Pertinent Labs and Imaging studies reviewed. (See chart for details) In summary, 34-year-old female who presents for evaluation of left-sided headache. No focal neurological deficits. No meningismus. Hemodynamically stable. Elevated blood pressure, but no clinical signs or symptoms concerning for endorgan damage. CT head without contrast is negative for acute pathology. Received migraine cocktail with efficacy. I considered, but do not suspect temporal arteritis, pseudotumor cerebri, subarachnoid hemorrhage. She remains well-appearing and nontoxic. Will be discharged home with a short course of Fioricet. Outpatient PMD follow-up. Advised compliance with antihypertensive. Return precautions given. Dragon Disclaimer: Vincenzo Disclaimer: This electronic medical record was generated, in whole or in part, using a voice recognition dictation system. Departure Departure Impression: Primary Impression: Headache Additional Impression: Noncompliance with medication regimen Disposition: 01 DC HOME SELF CARE/HOMELESS Condition: STABLE Patient Instructions: General Headache Without Cause, [id number], Hypertension Additional Instructions: Please follow up with your primary physician. Please take your blood pressure medication as directed. Return to the ED if you develop new or worsening symptoms. Scripts Butalbital/Aspirin/Caffeine (FIORINAL 50-325-40 MG CAPSULE) 1 Each Capsule 1 EACH PO TID PRN for HEADACHE, #15 CAP Prov: DONOVAN MORALES DO 03/05/20 DONOVAN MORALES DO Mar 05, 2020 08:26
[2020-03-05] MEDS ORDERED: diphenhydrAMINE 50 MG/ML VIAL IVP ONE (08:30)
[2020-03-05] MEDS ORDERED: IV NORMAL SALINE 1000ML BAG 1,000 ML IV ONE (08:30)
[2020-03-05] MEDS ORDERED: METOCLOPRAMIDE HCL 10 MG/2 ML VIAL. IVP ONE (08:30)
[2020-03-05] MEDS ORDERED: DEXAMETHASONE SOD PHOS 4 MG/ML VIAL IVP ONE (08:30)
--- NOTE | 2020-03-05 09:14 | RAD ---
CT Head W/O Contrast: History: Reason: HEADACHE / Spl. Instructions: / History: Comparison: June 13, 2019 Axial images were obtained without contrast. The astudillo and white matter appears normal and symmetrical for the patients age. There is no mass effect, extraaxial fluid collections or hydrocephalus. There is no gross bleed. There is no focal loss of astudillo-white matter distinction to suggest acute ischemia, i.e. stroke. Impression: No acute findings. [facility] Compliance Statement: One or more of the following individualized dose reduction techniques were utilized for this examination: 1. Automated exposure control 2. Adjustment of the mA and/or kV according to patient size 3. Use of iterative reconstruction technique Electronically signed by: Danial Westfall III, MD (03/05/2020 9:11 AM) [id number]
[2020-03-05] MEDS ORDERED: BUTA1CAP31 PO (09:26)
[2020-03-05 09:30] VITALS: BP 153/102
== END 2020-03-05 09:55 | disposition home or self-care (01) ==
LOC: ER 08:17
DX: R51.9 Headache, unspecified (principal); Z91.14 Patient's other noncompliance with medication regimen; I10 Essential (primary) hypertension; E66.01 Morbid (severe) obesity due to excess calories; Z68.43 Body mass index [BMI] 50.0-59.9, adult; Z85.9 Personal history of malignant neoplasm, unspecified; Z98.890 Other specified postprocedural states
CPT/HCPCS: 70450; 81025; 96361; 96374; 96375; 99284; J1100; J1200; J2765; J7030

== ENCOUNTER 2020-04-22 16:01 | Emergency (ER) | payer SELFPAY ==
[~2020-04-22] VITALS: Ht 182.9 cm; Wt 182.0 kg
[~2020-04-22 16:01] MED LIST changes: +BUTA1CAP31 PO
--- NOTE | 2020-04-22 18:17 | PHYS DOC ---
Past Medical History Past Medical History: Anxiety, Cancer, Hypertension, Other Additional Past Medical Histor: cervical cancer, MORBIDLY OBESE Past Surgical History: Other Additional Past Surgical Histo: LEEP procedure Smoking Status: Never Smoker Alcohol Use: None Drug Use: None General Adult EDM: Chief Complaint: LOWER EXTREMITY SWELLING HPI: HPI: 35-year-old female past medical history significant for abnormal cervical growth s/p leep (no followup), HTN, anxiety and morbid obesity, presents the ED with complaints of pain bl le swelling, worse over anterior shins for the past day. Patient reports she follows up with a local health department and [place]. Was started on Norvasc 1 month ago, a water pill that starts with a "C" and a medication that slows her heart rate that also starts with a "C," (coreg) does not recognize cardizem as her medication, thinks it's 25mg dose. Last menstrual period was as of last month. Is not a tobacco smoker is on any control medication. Works at [employer] (numerous covid cases), patient with no known Covid. Mother with history of breast cancer, s/p remission. No tobacco smokes, not on any control, no recent procedures/travel/immobilizations. Review of Systems: Review of Systems: Constitutional: Denies fever or chills. [] Eyes: Denies change in visual acuity. [] HENT: Denies nasal congestion or sore throat. [] Respiratory: Denies cough or shortness of breath. [] Cardiovascular: Denies chest pain or edema. [] GI: Denies abdominal pain, nausea, vomiting, bloody stools or diarrhea. [] : Denies dysuria. [] Musculoskeletal: Denies back pain or joint pain. [] Integument: Denies rash. [] Neurologic: Denies headache, focal weakness or sensory changes. [] Endocrine: Denies polyuria or polydipsia. [] Lymphatic: Denies swollen glands. [] Psychiatric: Denies depression or anxiety. [] Heart Score: Risk Factors: Risk Factors: DM, Current or recent (<one month) smoker, HTN, HLP, family history of CAD, obesity. Risk Scores: Score 0 - 3: 2.5% MACE over next 6 weeks - Discharge Home Score 4 - 6: 20.3% MACE over next 6 weeks - Admit for Clinical Observation Score 7 - 10: 72.7% MACE over next 6 weeks - Early Invasive Strategies Allergies: Allergies: Allergies Coded Allergies Type Severity Reaction Last Updated Verified No Known Drug Allergies 12/03/13 No Physical Exam: PE: Constitutional: Well developed, well nourished, no acute distress, non-toxic appearance, obese HENT: Normocephalic, atraumatic, Eyes: EOMI, conjunctiva normal, no discharge. Neck: Normal range of motion, supple, Cardiovascular: S1/2 present, regular rhythm Lungs & Thorax: Speaking in full sentences, bilateral equal chest rise, no tachypnea or increased work of breathing Abdomen: soft, no tenderness, Skin: Warm, dry, no erythema, no rash. [] Back: No tenderness, no CVA tenderness. [] Extremities: No tenderness, no cyanosis, +bl proximal leg swelling, no pedal edema Neurologic: Alert and oriented X 3, normal motor function, normal sensory function, no focal deficits noted. [] Psychologic: Affect normal, judgement normal, mood normal. [] Current Patient Data: Vital Signs: Vital Signs Date Time Temp Pulse Resp B/P (MAP) Pulse Ox O2 Delivery O2 Flow Rate FiO2 04/22/20 17:33 97.6 80 20 163/101 (121) 96 Room Air 97.6 EKG: EKG: [] Radiology/Procedures: Radiology/Procedures: IMAGING REPORT Signed PATIENT: BULL ENAMORADO ACCOUNT: [id number] : 1985 LOCATION: ER AGE: 35 SEX: F EXAM STATUS: REG ER ORD. PHYSICIAN: LEI SABA DO REASON: leg swelling, on norvasc, r/o dvt PROCEDURE: VENOUS LOWER EXT BILATERAL Exam: Bilateral lower extremity venous duplex study INDICATION: Leg swelling TECHNIQUE: Using a combination of real-time ultrasound imaging and color-flow and pulse Doppler imaging techniques along with graded compression and augmentation, duplex evaluation of the deep venous systems of bilateral lower extremity was performed. Multiple images were obtained. Findings: There is no sonographic evidence for deep venous thrombosis involving the visualized deep venous structures of the bilateral lower extremity. IMPRESSION: No acute DVT in the bilateral lower extremities. Electronically signed by: David Vanegas MD (04/22/2020 11:14 PM) [facility] DICTATED and SIGNED BY: DAVID VANEGAS MD DATE: 04/22/20 [id number] 0 Course & Med Decision Making: Course & Med Decision Making Pertinent Labs and Imaging studies reviewed. (See chart for details) Concern for lower extremity swelling, venous ultrasound negative for DVT. Could be adverse effect of Norvasc. Patient reports she has an appointment tomorrow with her primary care physician to discuss her medications. Strict ED return precautions were given for increased pain, swelling or neurologic deficits. Encouraged urgent outpatient follow-up with PMD. Life-threatening processes were considered but are low suspicion at this time, given history and physical exam. Pt was educated on all prescription medications and adverse effects. All patient's questions were answered and pt was stable at time of discharge. Life/limb-threatening differential includes but is not limited to, trauma (fracture, dislocation, laceration, compartment syndrome, tendon or ligament injury), neurovascular injury or deficit, infection (osteomyelitis, abscess, cellulitis, septic arthritis, necrotizing fasciitis), deep vein thrombosis, renal/cardiac/liver disease, medication adverse effect, lymphedema/anasarca, vascular insufficiency or malignancy, I spoken with the patient and her caregivers. I explained the patient's condition, diagnoses and treatment plan based on the information available to me at this time. I have answered the patient and her caregiver's questions and addressed any concerns. The patient and her caregivers have a good understanding of patient's diagnosis, condition and treatment plan as can be expected at this point. Vital signs have been stable. Patient's condition is stable and appropriate for discharge from the emergency department. Patient will pursue further outpatient evaluation with primary care physician or other designated or consulting physician as outlined in the discharge instructions. The patient and/or caregivers are agreeable to this plan of care and follow-up instructions have been explained in detail. The patient and/or caregivers have received these instructions in written form and have expressed an understanding of the discharge instructions. The patient and/or caregivers are aware that any significant change of condition or worsening of symptoms should prompt immediate return to this or the closest emergency department or call to 911. Vincenzo Disclaimer: Vincenzo Disclaimer: This electronic medical record was generated, in whole or in part, using a voice recognition dictation system. Departure Departure Impression: Primary Impression: Swelling of lower extremity Additional Impression: Adverse effects of medication Disposition: 01 DC HOME SELF CARE/HOMELESS Condition: STABLE Referrals: NO PCP (PCP) FOLLOW UP WITH FAMILY MEDICINE: Family Medicine Address: [address] [place] [address] Patient Instructions: Peripheral Edema Additional Instructions: EMERGENCY DEPARTMENT GENERAL DISCHARGE INSTRUCTIONS Thank you for coming to [facility] (ED) today and trusting us with you care. We trust that you had a positive experience in our Emergency Department. If you wish to speak to the department management, you may call the Director at [phone]. YOUR FOLLOW UP INSTRUCTIONS ARE FOLLOWS: 1. Do you have a private Doctor? If you do not have a private doctor, please ask for a resource list of physicians or clinics that may be able to assist you with follow up care. 2. The Emergency Physicain has interpreted your x-rays. The X-Ray specialist will also review them. If there is a change in the findings, you will be notified in 48 hours when at all possible. 3. A lab test or culture has been done, your results will be reviewed and you will be notified if you need a change in treatment. ADDITIONAL INSTRUCTIONS AND INFORMATION: 1. Your care today has been supervised by a physician who is specially trained in emergency care. Many problems require more than one evaluation for a complete diagnosis and treatment. We recommend that you schedule your follow up appointment as recommended to ensure complete treatment of you illness or injury. If you are unable to obtain follow up care and continue to have a problem, or if your condition worsens, we recommend that you return to the ED. 2. We are not able to safely determine your condition over the phone nor are we able to give sound medical advice over the phone. For these safety reasons, if you call for medical advice we will ask you to come to the ED for further evaluation. 3. If you have any questions regarding these discharge instructions please call the ED at [phone]. SAFETY INFORMATION: In the interest of safety, wellness, and injury prevention; we encourage you to wear your sealbelt, if you smoke; quite smoking, and we encourage family to use a protective helmet for bicycling and other sporting events that present an increased risk for head injury. IF YOUR SYMPTOMS WORSEN OR NEW SYMPTOMS DEVELOP, OR YOU HAVE CONCERNS ABOUT YOUR CONDITION; OR IF YOUR CONDITION WORSENS WHILE YOU ARE WAITING FOR YOUR FOLLOW UP APPOINTMENT; EITHER CONTACT YOUR PRIMARY CARE DOCTOR, THE PHYSICIAN WHOSE NAME AND NUMBER YOU WERE GIVEN, OR RETURN TO THE ED IMMEDIATELY. [facility] DO Apr 22, 2020 18:17
--- NOTE | 2020-04-22 23:17 | RAD ---
Exam: Bilateral lower extremity venous duplex study INDICATION: Leg swelling TECHNIQUE: Using a combination of real-time ultrasound imaging and color-flow and pulse Doppler imaging techniques along with graded compression and augmentation, duplex evaluation of the deep venous systems of bilateral lower extremity was performed. Multiple images were obtained. Findings: There is no sonographic evidence for deep venous thrombosis involving the visualized deep venous structures of the bilateral lower extremity. IMPRESSION: No acute DVT in the bilateral lower extremities. Electronically signed by: David Connor MD (04/22/2020 11:14 PM) FAIZAN
[2020-04-22 23:50] VITALS: BP 143/86
== END 2020-04-23 | disposition home or self-care (01) ==
LOC: ER 16:01
DX: M79.89 Other specified soft tissue disorders (principal); T78.8XXA Other adverse effects, not elsewhere classified, initial encounter; F41.9 Anxiety disorder, unspecified; I10 Essential (primary) hypertension; E66.01 Morbid (severe) obesity due to excess calories; Z68.43 Body mass index [BMI] 50.0-59.9, adult; Z98.890 Other specified postprocedural states; Z85.9 Personal history of malignant neoplasm, unspecified; Y92.89 Other specified places as the place of occurrence of the external cause
CPT/HCPCS: 93970; 99285

== ENCOUNTER 2020-05-20 20:15 | Emergency (ER) | payer SELFPAY ==
[~2020-05-20] VITALS: Ht 175.3 cm; Wt 193.0 kg
[2020-05-20 20:45] VITALS: BP 149/81
[2020-05-20] MEDS ORDERED: NAPROXEN 500 MG TABLET PO STA (20:52)
[2020-05-20] MEDS ORDERED: CYCLOBENZAPRINE 10 MG TABLET. PO ONE (21:00)
[2020-05-20] MEDS ORDERED: traMADol 50 MG TABLET PO ONE (21:00)
--- NOTE | 2020-05-20 21:05 | PHYS DOC ---
Past Medical History Past Medical History: Anxiety, Cancer, Hypertension, Other Additional Past Medical Histor: cervical cancer, MORBIDLY OBESE Past Surgical History: Other Additional Past Surgical Histo: LEEP procedure Smoking Status: Never Smoker Alcohol Use: None Drug Use: None Adult General Chief Complaint Chief Complaint: LOWER EXTREMITY EDEMA HPI HPI Patient is a 35 year old presenting the emergency department complaining of new onset of left lower extremity pain and burning. Patient was noted to have been seen in our emergency department approximately 1 month ago after she complained of new onset of bilateral lower extremity swelling. Patient was noted to have hypertension at the time and change medications and thought that there was likely the cause of her swelling. Patient states that swelling is improved however the last few days has noted worsening pain over the left lower extremity. Patient simply states that she is having a burning sensation of the left lateral thigh. Patient states that however this is accompanied by pain over the left back and pain throughout the entire left lower extremity. Denies any numbness or weakness in the left leg. Denies any fever, chills, nausea or vomiting. Review of Systems Review of Systems Constitutional: Denies fever or chills [] Eyes: Denies change in visual acuity, redness, or eye pain [] HENT: Denies nasal congestion or sore throat [] Respiratory: Denies cough or shortness of breath [] Cardiovascular: No additional information not addressed in HPI [] GI: Denies abdominal pain, nausea, vomiting, bloody stools or diarrhea [] : Denies dysuria or hematuria [] Musculoskeletal: Denies back pain or joint pain [] Integument: Denies rash or skin lesions [] Neurologic: Denies headache, focal weakness or sensory changes [] Endocrine: Denies polyuria or polydipsia [] All other systems were reviewed and found to be within normal limits, except as documented in this note. Current Medications Current Medications Current Medications Medications (Trade) Dose Ordered Sig/Therese Start Time Stop Time Status Last Admin Dose Admin Cyclobenzaprine HCl (Flexeril) 10 mg 1X ONCE 05/20/20 21:00 05/20/20 21:01 DC 05/20/20 21:06 10 MG Naproxen (Naprosyn) 500 mg 1X STAT 05/20/20 20:52 05/20/20 21:01 DC 05/20/20 21:06 500 MG Tramadol HCl (Ultram) 100 mg 1X ONCE 05/20/20 21:00 05/20/20 21:01 DC Allergies Allergies Allergies Coded Allergies Type Severity Reaction Last Updated Verified No Known Drug Allergies 12/03/13 No Physical Exam Physical Exam Constitutional: Well developed, well nourished, no acute distress, non-toxic appearance. [] HENT: Normocephalic, atraumatic, bilateral external ears normal, oropharynx moist, no oral exudates, nose normal. [] Eyes: PERRLA, EOMI, conjunctiva normal, no discharge. [] Neck: Normal range of motion, no tenderness, supple, no stridor. [] Cardiovascular:Heart rate regular rhythm, no murmur [] Lungs & Thorax: Bilateral breath sounds clear to auscultation [] Abdomen: Bowel sounds normal, soft, no tenderness, no masses, no pulsatile masses. [] Skin: Warm, dry, no erythema, no rash. [] Back: No tenderness, no CVA tenderness. [] Extremities: No tenderness, no cyanosis, no clubbing, ROM intact, no edema. Neurologic: Alert and oriented X 3, normal motor function, normal sensory function, no focal deficits noted. Hyperalgesia to the left anterior thigh and to a lesser extent in the left lower extremity Psychologic: Affect normal, judgement normal, mood normal. [] Current Patient Data Vital Signs Vital Signs Date Time Temp Pulse Resp B/P (MAP) Pulse Ox O2 Delivery O2 Flow Rate FiO2 05/20/20 20:45 72 16 149/81 (103) 98 Room Air 05/20/20 20:27 97.6 97.6 Lab Values Laboratory Tests Test 05/20/20 21:10 White Blood Count 6.4 x10^3/uL (4.0-11.0) Red Blood Count 4.46 x10^6/uL (3.50-5.40) Hemoglobin 11.7 g/dL (12.0-15.5) L Hematocrit 35.6 % (36.0-47.0) L Mean Corpuscular Volume 80 fL (79-100) Mean Corpuscular Hemoglobin 26 pg (25-35) Mean Corpuscular Hemoglobin Concent 33 g/dL (31-37) Red Cell Distribution Width 15.8 % (11.5-14.5) H Platelet Count 410 x10^3/uL (140-400) H Neutrophils (%) (Auto) 53 % (31-73) Lymphocytes (%) (Auto) 38 % (24-48) Monocytes (%) (Auto) 5 % (0-9) Eosinophils (%) (Auto) 4 % (0-3) H Basophils (%) (Auto) 1 % (0-3) Neutrophils # (Auto) 3.4 x10^3/uL (1.8-7.7) Lymphocytes # (Auto) 2.4 x10^3/uL (1.0-4.8) Monocytes # (Auto) 0.3 x10^3/uL (0.0-1.1) Eosinophils # (Auto) 0.2 x10^3/uL (0.0-0.7) Basophils # (Auto) 0.1 x10^3/uL (0.0-0.2) Sodium Level 139 mmol/L (136-145) Potassium Level 3.1 mmol/L (3.5-5.1) L Chloride Level 103 mmol/L (98-107) Carbon Dioxide Level 27 mmol/L (21-32) Anion Gap 9 (6-14) Blood Urea Nitrogen 12 mg/dL (7-20) Creatinine 0.6 mg/dL (0.6-1.0) Estimated GFR (Cockcroft-Gault) 137.7 Glucose Level 117 mg/dL (70-99) H Calcium Level 9.1 mg/dL (8.5-10.1) C-Reactive Protein, Quantitative 13.7 mg/L (0-3.3) H Laboratory Tests 05/20/20 21:10 Laboratory Tests 05/20/20 21:10 Radiology/Procedures Radiology/Procedures US negative for DVT Course & Med Decision Making Course & Med Decision Making Pertinent Labs and Imaging studies reviewed. (See chart for details) 35-year-old female with past medical history hypertension now presenting with significant pain and burning sensation in the left lower extremity. Patient does have a little bit of tenderness over the left lower lumbar region as well. At this point I do think this is secondary to radiculopathy. However this is nonspecific. At this point differential is broad. Will obtain basic labs and attempt to treat the patient symptomatically and reevaluate. Life/limb-threatening differential includes but is not limited to, trauma (fracture, dislocation, laceration, compartment syndrome, tendon or ligament injury), neurovascular injury or deficit, infection (osteomyelitis, abscess, cellulitis, septic arthritis, necrotizing fasciitis), deep vein thrombosis, renal/cardiac/liver disease, medication adverse effect, lymphedema/anasarca, vascular insufficiency or malignancy, 22:36 -labs and ultrasound negative at this point. I discussed options with the patient at this point she agrees that she will follow up with her primary care physician for further evaluation of this condition. Patient feels that her symptoms are improved and verbalized understanding agreement discharge plan. I spoken with the patient and her caregivers. I explained the patient's condition, diagnoses and treatment plan based on the information available to me at this time. I have answered the patient and her caregiver's questions and addressed any concerns. The patient and her caregivers have a good understandin g of patient's diagnosis, condition and treatment plan as can be expected at this point. Vital signs have been stable. Patient's condition is stable and appropriate for discharge from the emergency department. Patient will pursue further outpatient evaluation with primary care physician or other designated or consulting physician as outlined in the discharge instructions. The patient and/or caregivers are agreeable to this plan of care and follow-up instructions have been explained in detail. The patient and/or caregivers have received these instructions in written form and have expressed an understanding of the discharge instructions. The patient and/or caregivers are aware that any significant change of condition or worsening of symptoms should prompt immediate return to this or the closest emergency department or call to 911. Vincenzo Disclaimer Dragon Disclaimer This electronic medical record was generated, in whole or in part, using a voice recognition dictation system. Departure Departure Impression: Primary Impression: Left leg pain Disposition: 01 DC HOME SELF CARE/HOMELESS Condition: GOOD Referrals: NO PCP (PCP) Patient Instructions: Sciatica Additional Instructions: EMERGENCY DEPARTMENT GENERAL DISCHARGE INSTRUCTIONS Thank you for coming to [facility] Emergency Department (ED) today and trusting us with you care. We trust that you had a positive experience in our Emergency Department. If you wish to speak to the department management, you may call the Director at [phone]. YOUR FOLLOW UP INSTRUCTIONS ARE FOLLOWS: 1. Do you have a private Doctor? If you do not have a private doctor, please ask for a resource list of physicians or clinics that may be able to assist you with follow up care. 2. The Emergency Physicain has interpreted your x-rays. The X-Ray specialist will also review them. If there is a change in the findings, you will be notified in 48 hours when at all possible. 3. A lab test or culture has been done, your results will be reviewed and you will be notified if you need a change in treatment. ADDITIONAL INSTRUCTIONS AND INFORMATION: 1. Your care today has been supervised by a physician who is specially trained in emergency care. Many problems require more than one evaluation for a complete diagnosis and treatment. We recommend that you schedule your follow up appointment as recommended to ensure complete treatment of you illness or injury. If you are unable to obtain follow up care and continue to have a problem, or if your condition worsens, we recommend that you return to the ED. 2. We are not able to safely determine your condition over the phone nor are we able to give sound medical advice over the phone. For these safety reasons, if you call for medical advice we will ask you to come to the ED for further evaluation. 3. If you have any questions regarding these discharge instructions please call the ED at [phone]. SAFETY INFORMATION: In the interest of safety, wellness, and injury prevention; we encourage you to wear your sealbelt, if you smoke; quite smoking, and we encourage family to use a protective helmet for bicycling and other sporting events that present an increased risk for head injury. IF YOUR SYMPTOMS WORSEN OR NEW SYMPTOMS DEVELOP, OR YOU HAVE CONCERNS ABOUT YOUR CONDITION; OR IF YOUR CONDITION WORSENS WHILE YOU ARE WAITING FOR YOUR FOLLOW UP APPOINTMENT; EITHER CONTACT YOUR PRIMARY CARE DOCTOR, THE PHYSICIAN WHOSE NAME AND NUMBER YOU WERE GIVEN, OR RETURN TO THE ED IMMEDIATELY. CAN HULL MD May 20, 2020 21:05
[2020-05-20 21:21] LABS: BASO # 0.1 x10^3/uL (0.0-0.2); BASO % 1 % (0-3); EOS # 0.2 x10^3/uL (0.0-0.7); EOS % 4 % (0-3); HEMATOCRIT 35.6 % (36.0-47.0); HEMOGLOBIN 11.7 g/dL (12.0-15.5); LYMPH # 2.4 x10^3/uL (1.0-4.8); LYMPH % 38 % (24-48); MEAN CORPUSCULAR HEMOGLOBIN 26 pg (25-35); MEAN CORPUSCULAR HGB CONC 33 g/dL (31-37); MEAN CORPUSCULAR VOLUME 80 fL (79-100); MONO # 0.3 x10^3/uL (0.0-1.1); MONO % 5 % (0-9); NEUT # 3.4 x10^3/uL (1.8-7.7); NEUT % 53 % (31-73); PLATELET COUNT 410 x10^3/uL (140-400); RED BLOOD COUNT 4.46 x10^6/uL (3.50-5.40); RED CELL DISTRIBUTION WIDTH 15.8 % (11.5-14.5); WHITE BLOOD COUNT 6.4 x10^3/uL (4.0-11.0)
[2020-05-20 21:28] LABS: CALCIUM 9.1 mg/dL (8.5-10.1); CREATININE 0.6 mg/dL (0.6-1.0); GFR 137.7; POTASSIUM 3.1 mmol/L (3.5-5.1)
[2020-05-20 21:30] LABS: C-REACTIVE PROTEIN 13.7 mg/L (0-3.3)
[2020-05-20] MEDS ORDERED: CYCL10TA2 PO (22:39)
--- NOTE | 2020-05-20 22:57 | RAD ---
Examination: Unilateral venous Doppler. Technique: Ultrasound evaluation of the left lower extremity was performed from the groin to the uppe r calf with quintanilla scale, spectral and color doppler evaluation. Indication: Leg swelling Comparison: None Findings: There is normal venous flow and compressibility of left common femoral vein, femoral vein, popliteal vein, and visualized proximal calf veins. Impression: No evidence for deep vein thrombosis of left lower extremity from the level of the calf v eins to the groins. Electronically signed by: Rocael Corado MD (05/20/2020 10:54 PM) JAZLYN
== END 2020-05-20 22:55 | disposition home or self-care (01) ==
LOC: ER 20:15
DX: M79.605 Pain in left leg (principal); R22.43 Localized swelling, mass and lump, lower limb, bilateral; I10 Essential (primary) hypertension; F41.9 Anxiety disorder, unspecified; E66.01 Morbid (severe) obesity due to excess calories; Z68.44 Body mass index [BMI] 60.0-69.9, adult
CPT/HCPCS: 36415; 80048; 85025; 86140; 93971; 99284

== ENCOUNTER 2020-11-04 21:51 | Emergency (ER) | payer OTHER ==
[~2020-11-04] VITALS: Ht 182.9 cm; Wt 165.9 kg
[~2020-11-04 21:51] MED LIST changes: -CLIN150C14 PO; +CLIN150C15 PO; -HYDR50TA6 PO; +HYDR50TA9 PO
[2020-11-04 22:09] VITALS: BP 147/86
[2020-11-04] MEDS ORDERED: GABA300C18 PO (22:38)
--- NOTE | 2020-11-04 22:39 | PHYS DOC ---
Past Medical History Past Medical History: Anxiety, Cancer, Hypertension, Other Additional Past Medical Histor: cervical cancer, MORBIDLY OBESE Past Surgical History: Other Additional Past Surgical Histo: LEEP procedure Smoking Status: Never Smoker Alcohol Use: None Drug Use: None General Adult EDM: Chief Complaint: LOWER EXT PAIN HPI: HPI: Patient is a 35 year old female who presents to the ED today complaining of 10 out of 10 bilateral lower extremity pain that has been going on for 2 months although she states this is a chronic issue for months. Patient states she has followed up with her PCP who started her on cyclobenzaprine, naproxen and told her this pain is coming from her back. Patient denies any injuries. Describes the pain as shooting worse on her feet and when she is walking. She states she missed work today due to the pain. Denies any chest pain, shortness of breath. Review of Systems: Review of Systems: Constitutional: Denies fever or chills. [] Eyes: Denies change in visual acuity. [] HENT: Denies nasal congestion or sore throat. [] Respiratory: Denies cough or shortness of breath. [] Cardiovascular: Denies chest pain or edema. [] GI: Denies abdominal pain, nausea, vomiting, bloody stools or diarrhea. [] : Denies dysuria. [] Musculoskeletal: Reports bilateral lower extremity pain. Denies back pain Integument: Denies rash. [] Neurologic: Denies headache, focal weakness or sensory changes. [] Psychiatric: Denies depression or anxiety. [] Heart Score: C/O Chest Pain: N/A Risk Factors: Risk Factors: DM, Current or recent (<one month) smoker, HTN, HLP, family history of CAD, obesity. Risk Scores: Score 0 - 3: 2.5% MACE over next 6 weeks - Discharge Home Score 4 - 6: 20.3% MACE over next 6 weeks - Admit for Clinical Observation Score 7 - 10: 72.7% MACE over next 6 weeks - Early Invasive Strategies Allergies: Allergies: Allergies Coded Allergies Type Severity Reaction Last Updated Verified No Known Drug Allergies 12/03/13 No Physical Exam: PE: Constitutional: Overweight patient. No acute distress, non-toxic appearance. [] Skin: Warm, dry, no erythema, no rash. [] Back: No tenderness, no CVA tenderness. [] Extremities: No tenderness, no cyanosis, no clubbing, ROM intact, no edema. Negative Homans' sign bilaterally Neurologic: Alert and oriented X 3, normal motor function, normal sensory function, no focal deficits noted. [] Psychologic: Affect normal, judgement normal, mood normal. [] Current Patient Data: Vital Signs: Vital Signs Date Time Temp Pulse Resp B/P (MAP) Pulse Ox O2 Delivery O2 Flow Rate FiO2 11/04/20 22:09 98.0 91 18 147/86 (106) 97 Room Air 98.0 EKG: EKG: [] Radiology/Procedures: Radiology/Procedures: [] Course & Med Decision Making: Course & Med Decision Making Pertinent Labs and Imaging studies reviewed. (See chart for details) This is a 35-year-old female patient presenting to the ED today with chronic bilateral lower extremity pain. No swelling noted. Patient was seen by the PCP and started on naproxen and Flexeril. She states today she missed work. Note was provided for work. Given prescription for gabapentin. Patient is overweight. Weight loss may benefit her. Kirstieon Disclaimer: Vincenzo Disclaimer: This electronic medical record was generated, in whole or in part, using a voice recognition dictation system. Departure Departure Impression: Primary Impression: Lower extremity pain, bilateral Disposition: HOME / SELF CARE / HOMELESS Condition: STABLE Referrals: NO PCP (PCP) Follow-up with your doctor next week Patient Instructions: Musculoskeletal Pain Additional Instructions: You were evaluated in the emergency room for lower extremity pain. Please follow-up with your primary care doctor in 1 to 2 weeks. Try to exercise. Scripts Gabapentin (GABAPENTIN ) 300 Mg Capsule 300 MG PO TID for NEUROGENIC PAIN, #30 CAP Prov: JAK ARORA CLERICAL AIDE 11/04/20 JAK ARORA CLERICAL AIDE Nov 04, 2020 22:39
== END 2020-11-04 22:44 | disposition home or self-care (01) ==
LOC: ER 21:51
DX: M79.605 Pain in left leg (principal); G89.29 Other chronic pain; I10 Essential (primary) hypertension; E66.01 Morbid (severe) obesity due to excess calories; Z68.42 Body mass index [BMI] 45.0-49.9, adult
CPT/HCPCS: 99283

== ENCOUNTER 2021-02-17 18:35 | Emergency (ER) | payer SELFPAY ==
[~2021-02-17] VITALS: Ht 177.8 cm; Wt 175.0 kg
[~2021-02-17 18:35] MED LIST changes: -CLIN150C15 PO; +CLIN150C16 PO; +GABA300C18 PO
[2021-02-17 19:20] VITALS: BP 174/94
[2021-02-19] MEDS ORDERED: AMOX500C PO (04:47)
== END 2021-02-18 01:20 | disposition left against medical advice (07) ==
LOC: ER 18:35
DX: G43.909 Migraine, unspecified, not intractable, without status migrainosus (principal); Z53.21 Procedure and treatment not carried out due to patient leaving prior to being seen by health care provider

== ENCOUNTER 2021-02-19 00:43 | Emergency (ER) | payer SELFPAY ==
[~2021-02-19] VITALS: Ht 182.9 cm; Wt 181.9 kg
--- NOTE | 2021-02-19 01:13 | PHYS DOC ---
Past Medical History Past Medical History: Anxiety, Cancer, Hypertension, Other Additional Past Medical Histor: cervical cancer, MORBIDLY OBESE Past Surgical History: Other Additional Past Surgical Histo: LEEP procedure Smoking Status: Never Smoker Alcohol Use: None Drug Use: None General Adult EDM: Chief Complaint: CHEST PAIN HPI: HPI: Patient is a 35 year old female with history of HTN, obesity, remote history of cervical cancer who presents with right-sided chest pain. Sharp and pleuritic. Radiates toward the right arm. Started approximately 8 hours prior to arrival. She had been feeling in her normal state of health recently except for some swelling to her left leg. Denies personal history of DVT/PE. No blood thinning medications. No estrogen-containing medications. She is not a smoker. No illicit drug use. No alcohol use. No abdominal pain, nausea, vomiting. No fevers or chills. No recent exposures to Covid positive people. Has not received her Covid vaccination. Review of Systems: Review of Systems: Constitutional: Denies fever or chills. [] Eyes: Denies change in visual acuity. [] HENT: Denies nasal congestion or sore throat. [] Respiratory: Denies cough or shortness of breath. [] Cardiovascular: Reports right-sided chest pain and left lower extremity swelling.. [] GI: Denies abdominal pain, nausea, vomiting, bloody stools or diarrhea. [] : Denies dysuria. [] Musculoskeletal: Denies back pain or joint pain. [] Integument: Denies rash. [] Neurologic: Denies headache, focal weakness or sensory changes. [] Endocrine: Denies polyuria or polydipsia. [] Lymphatic: Denies swollen glands. [] Psychiatric: Denies depression or anxiety. [] Heart Score: C/O Chest Pain: Yes HEART Score for Chest Pain: HEART Score for Chest Pain Response (Comments) Value History Slighlty/Non-Suspicious 0 ECG Nonspecific Repolarizatio 1 Age < 45 0 Risk Factors 1 or 2 Risk Factors 1 Total 2 Risk Factors: Risk Factors: HTN, Obesity. Risk Scores: Score 0 - 3: 2.5% MACE over next 6 weeks - Discharge Home Score 4 - 6: 20.3% MACE over next 6 weeks - Admit for Clinical Observation Score 7 - 10: 72.7% MACE over next 6 weeks - Early Invasive Strategies Allergies: Allergies: Allergies Coded Allergies Type Severity Reaction Last Updated Verified No Known Drug Allergies 12/03/13 No Physical Exam: PE: Constitutional: Obese, no apparent distress. HENT: Normocephalic, atraumatic, Eyes: conjunctiva normal, no discharge. [] Neck: Normal range of motion, no tenderness, supple, no stridor. [] Cardiovascular:Heart rate regular rhythm, no murmur [] Lungs & Thorax: Bilateral breath sounds clear to auscultation [] Abdomen: Bowel sounds normal, soft, no tenderness, no masses, no pulsatile masses. [] Skin: Warm, dry, no erythema, no rash. [] Back: No tenderness, no CVA tenderness. [] Extremities: No appreciable lower extremity edema. Patient does state that her left appears larger than her right no tenderness, no cyanosis, no clubbing, ROM intact. Neurologic: Alert and oriented X 3, normal motor function, normal sensory function, no focal deficits noted. [] Psychologic: Affect normal, judgement normal, mood normal. [] EKG: EKG: Sinus rhythm. Rate 84. Normal SC and QRS intervals. QTc is 469. Normal axis. Lead III with Q waves and T wave inversion. No other acute ischemic changes noted [] Radiology/Procedures: Radiology/Procedures: [] Impression: [facility] [address] [facility] [place], [place] [id number] IMAGING REPORT Signed PATIENT: BULL ENAMORADO ACCOUNT: [id number] : 1985 LOCATION: ER AGE: 35 SEX: F EXAM STATUS: REG ER ORD. PHYSICIAN: DELMAR MCNEIL MD REASON: CHEST PAIN, RIGHT SIDED PROCEDURE: CHEST AP ONLY EXAM: AP View of the chest DATE: 02/19/2021 3:20 AM INDICATION: Reason: CHEST PAIN, RIGHT SIDED / Spl. Instructions: / History: COMPARISON: 07/05/2019 FINDINGS: The heart is not enlarged. Mediastinal and hilar contours are stable. Perihilar and lung base airspace opacities likely consolidative process such as pneumonia. No pleural effusion or pneumothorax. IMPRESSION: Perihilar and lung base airspace opacities likely consolidative process such as pneumonia. Atelectasis could also have this appearance. Electronically signed by: Rocael Corado MD (02/19/2021 3:30 AM) [facility] DICTATED and SIGNED BY: ROCAEL CORADO MD DATE: 02/19/21 [id number] 0 Course & Med Decision Making: Course & Med Decision Making Pertinent Labs and Imaging studies reviewed. (See chart for details) Patient a 35-year-old female who presents with 8 hours of left-sided pleuritic chest pain. Notes that she has had left lower extremity swelling preceding symptom onset. On arrival is afebrile, hemodynamically stable, satting well on room air. EKG does show Q waves and T wave inversion in lead III. No other acute abnormalities. We will check troponin, D-dimer, and we will either pursue chest x-ray or CTA pending results. 0012 Chest x-ray concerning for pneumonia. Labs reassuring. Troponin and D-dimer negative. We will draw one additional troponin to ensure no evidence of myocardial injury. If negative we will plan on treating pneumonia with amoxicillin and discharge with outpatient follow-up. [address] Disclaimer: KirstietripJane Disclaimer: This electronic medical record was generated, in whole or in part, using a voice recognition dictation system. Departure Departure Impression: Primary Impression: Pneumonia Disposition: HOME / SELF CARE / HOMELESS Condition: IMPROVED Referrals: NO PCP (PCP) Patient Instructions: Pneumonia, Adult Additional Instructions: There is some evidence of pneumonia on your chest x-ray. Would like you to treat this with amoxicillin for 7 days. Please follow-up with your primary care doctor to ensure that your symptoms are improving. Schedule an appointment for the next week. If you develop worsening pain, shortness of breath, or other new/concerning symptoms please return to the emergency department for reevaluation. Scripts Amoxicillin (AMOXICILLIN) 500 Mg Capsule 2 CAP PO BID for infection for 7 Days, #28 CAP Prov: DELMAR MCNEIL MD 02/19/21 DELMAR MCNEIL MD Feb 19, 2021 01:13
[2021-02-19 01:15] LABS: BASO # 0.1 x10^3/uL (0.0-0.2); BASO % 1 % (0-3); EOS # 0.3 x10^3/uL (0.0-0.7); EOS % 4 % (0-3); HEMATOCRIT 35.2 % (36.0-47.0); HEMOGLOBIN 12.1 g/dL (12.0-15.5); LYMPH # 4.1 x10^3/uL (1.0-4.8); LYMPH % 44 % (24-48); MEAN CORPUSCULAR HEMOGLOBIN 27 pg (25-35); MEAN CORPUSCULAR HGB CONC 34 g/dL (31-37); MEAN CORPUSCULAR VOLUME 79 fL (79-100); MONO # 0.7 x10^3/uL (0.0-1.1); MONO % 7 % (0-9); NEUT # 4.1 x10^3/uL (1.8-7.7); NEUT % 44 % (31-73); PLATELET COUNT 422 x10^3/uL (140-400); RED BLOOD COUNT 4.44 x10^6/uL (3.50-5.40); RED CELL DISTRIBUTION WIDTH 15.8 % (11.5-14.5); WHITE BLOOD COUNT 9.3 x10^3/uL (4.0-11.0)
[2021-02-19 01:22] LABS: CALCIUM 8.9 mg/dL (8.5-10.1); CREATININE 0.7 mg/dL (0.6-1.0); GFR 115.2; POTASSIUM 3.2 mmol/L (3.5-5.1)
[2021-02-19 01:28] LABS: ALBUMIN/GLOBULIN RATIO 0.6 (1.0-1.7); TOTAL BILIRUBIN 0.2 mg/dL (0.2-1.0); TOTAL PROTEIN 8.1 g/dL (6.4-8.2)
--- NOTE | 2021-02-19 03:32 | RAD ---
EXAM: AP View of the chest DATE: 02/19/2021 3:20 AM INDICATION: Reason: CHEST PAIN, RIGHT SIDED / Spl. Instructions: / History: COMPARISON: 07/05/2019 FINDINGS: The heart is not enlarged. Mediastinal and hilar contours are stable. Perihilar and lung base airspace opacities likely consolidative process such as pneumonia. No pleural effusion or pneumothorax. IMPRESSION: Perihilar and lung base airspace opacities likely consolidative process such as pneumonia. Atelectasi s could also have this appearance. Electronically signed by: Rocael Corado MD (02/19/2021 3:30 AM) JAZLYN
[2021-02-19] MEDS ORDERED: AMOX500C PO (04:47)
--- NOTE | 2021-02-19 06:32 | EKG ---
[facility] [address] [place] [address] Test Date: 2021-02-19 Test Time: 01:02:35 Pat Name: BULL ENAMORADO Department: Room: Gender: F Real Time Operator: : 1985 Requested By: DELMAR MCNEIL Order Number: [id number] Reading MD: Measurements Intervals [employer] Rate: 84 P: 51 [place]: 168 QRS: 45 QRSD: 98 T: 0 QT: 394 QTc: 469 Interpretive Statements SINUS RHYTHM NORMAL ECG RI6.02 Compared to ECG 02/19/2021 01:00:36 Atrial abnormality no longer present
[2021-02-19 07:30] VITALS: BP 114/58
== END 2021-02-19 07:54 | disposition home or self-care (01) ==
LOC: ER 00:43
DX: J18.9 Pneumonia, unspecified organism (principal); I10 Essential (primary) hypertension; F41.9 Anxiety disorder, unspecified; E66.01 Morbid (severe) obesity due to excess calories; Z68.43 Body mass index [BMI] 50.0-59.9, adult
CPT/HCPCS: 36415; 71045; 80053; 84484; 85025; 85379; 93005; 99285-25

== ENCOUNTER 2021-08-19 | Emergency (ER) | payer SELFPAY ==
[~2021-08-19] VITALS: Ht 175.3 cm; Wt 186.5 kg
[~2021-08-19] MED LIST changes: +AMOX500C PO; +CYCL10TA19 PO; -CYCL10TA2 PO
--- NOTE | 2021-08-19 00:43 | PHYS DOC ---
Past Medical History Past Medical History: Anxiety, Cancer, Hypertension, Other Additional Past Medical Histor: cervical cancer, MORBIDLY OBESE Past Surgical History: Other Additional Past Surgical Histo: LEEP procedure Smoking Status: Never Smoker Alcohol Use: None Drug Use: None Adult General Chief Complaint Chief Complaint: CHEST PAIN HPI HPI The patient is a 36-year-old female never smoker with a history of morbid obesity and hypertension as well as a remote history of cervical cancer. Ms. Stoddard presents for evaluation of 2 days of right-sided upper sternal chest discomfort, sharp, pleuritic and reproducible to palpation of the chest wall as well as with ranging of the right shoulder. Severity of discomfort about 6 out of 10 at present. Discomfort is nonexertional. Associated mild shortness of breath at times per patient because it hurts to take a deep breath. No associated fevers, nausea or vomiting, upper respiratory congestion/rhinorrhea, cough, sore throat, abdominal pain of any kind, flank pain, midline back pain, dysuria, hematuria, polyuria or oliguria, changes in bowel habits, pain or swelling to arms or legs. Patient is alert and pleasantly and appropriately interactive and in no acute distress with appropriate vital signs upon initial evaluation here in the emergency department. Review of Systems Review of Systems A 12 point review of systems was completed and was negative except where noted in HPI above. Current Medications Current Medications Current Medications Medications (Trade) Dose Ordered Sig/Therese Start Time Stop Time Status Last Admin Dose Admin Aspirin (Matthew Aspirin) 325 mg 1X ONCE 08/19/21 01:00 08/19/21 01:01 DC 08/19/21 00:31 325 MG Ketorolac Tromethamine (Toradol 30mg Vial) 30 mg 1X ONCE 08/19/21 01:45 08/19/21 01:46 UNV Lidocaine (Lidoderm) 1 patch 1X ONCE 08/19/21 01:00 08/19/21 01:01 DC 08/19/21 00:31 1 PATCH Potassium Chloride (Klor-Con) 40 meq 1X ONCE 08/19/21 01:30 08/19/21 01:31 DC Allergies Allergies Allergies Coded Allergies Type Severity Reaction Last Updated Verified No Known Drug Allergies 12/03/13 No Physical Exam Physical Exam 36-year-old female appearing nontoxic and in no acute distress. Head is normocephalic and atraumatic. Neck is supple and nontender. Oropharynx is moist. Lungs are clear to auscultation at all stations. There is a normal S1 and S2 without rubs or gallops and capillary refill is appropriate, less than 2 seconds globally. Evaluation of the chest wall reveals mild tenderness to the right upper sternal chest wall without erythema, warmth, swelling, paradoxical movement, crepitus or other acute abnormality seen. Abdomen is soft, nontender and nondistended. Skin is warm and dry without cyanosis, clubbing or edema. Psychiatrically, the patient demonstrates appropriate mood and affect and is alert. Evaluation of the extremities reveals BUEs and BLEs neurovascular intact distally strength 5 out of 5, sensation intact light touch in all nerve distributions, radial, DP and PT pulses 2+ and equal bilaterally, capillary refill less than 2 seconds, hands and feet warm and well-perfused. No dependent peripheral edema distally. No calf tenderness or swelling bilaterally. Homans test is negative bilaterally. Current Patient Data Vital Signs Vital Signs Date Time Temp Pulse Resp B/P (MAP) Pulse Ox O2 Delivery O2 Flow Rate FiO2 08/19/21 00:03 98.3 84 18 127/67 (87) 94 Room Air 98.3 Lab Values Laboratory Tests Test 08/19/21 00:39 08/19/21 00:45 White Blood Count 9.7 x10^3/uL (4.0-11.0) Red Blood Count 4.66 x10^6/uL (3.50-5.40) Hemoglobin 12.3 g/dL (12.0-15.5) Hematocrit 36.7 % (36.0-47.0) Mean Corpuscular Volume 79 fL (79-100) Mean Corpuscular Hemoglobin 27 pg (25-35) Mean Corpuscular Hemoglobin Concent 34 g/dL (31-37) Red Cell Distribution Width 15.6 % (11.5-14.5) H Platelet Count 446 x10^3/uL (140-400) H Neutrophils (%) (Auto) 44 % (31-73) Lymphocytes (%) (Auto) 45 % (24-48) Monocytes (%) (Auto) 8 % (0-9) Eosinophils (%) (Auto) 3 % (0-3) Basophils (%) (Auto) 1 % (0-3) Neutrophils # (Auto) 4.2 x10^3/uL (1.8-7.7) Lymphocytes # (Auto) 4.4 x10^3/uL (1.0-4.8) Monocytes # (Auto) 0.7 x10^3/uL (0.0-1.1) Eosinophils # (Auto) 0.3 x10^3/uL (0.0-0.7) Basophils # (Auto) 0.1 x10^3/uL (0.0-0.2) Prothrombin Time 13.5 SEC (11.7-14.0) Prothrombin Time INR 1.1 (0.8-1.1) Activated Partial Thromboplast Time 34 SEC (24-38) D-Dimer (Idalmis) < 0.27 ug/mlFEU Sodium Level 139 mmol/L (136-145) Potassium Level 3.1 mmol/L (3.5-5.1) L Chloride Level 102 mmol/L (98-107) Carbon Dioxide Level 29 mmol/L (21-32) Anion Gap 8 (6-14) Blood Urea Nitrogen 15 mg/dL (7-20) Creatinine 0.7 mg/dL (0.6-1.0) Estimated GFR (Cockcroft-Gault) 114.6 BUN/Creatinine Ratio 21 (6-20) H Glucose Level 86 mg/dL (70-99) Calcium Level 8.9 mg/dL (8.5-10.1) Total Bilirubin 0.2 mg/dL (0.2-1.0) Aspartate Amino Transferase (AST) 13 U/L (15-37) L Alanine Aminotransferase (ALT) 24 U/L (14-59) Alkaline Phosphatase 91 U/L (46-116) Troponin I High Sensitivity 5 ng/L (4-50) HW-Nlc-L-Type Natriuretic Peptide 21 pg/mL (0-124) Total Protein 8.4 g/dL (6.4-8.2) H Albumin 3.2 g/dL (3.4-5.0) L Albumin/Globulin Ratio 0.6 (1.0-1.7) L POC Urine HCG, Qualitative Hcg negative (Negative) Laboratory Tests 08/19/21 00:39 Laboratory Tests 08/19/21 00:39 EKG EKG Sinus rhythm, rate 86, no acute ST elevation or depression, T wave inversion lead III, similar to prior EKGs, NV 162, QRS 100, QTc 460, EP interpretation. Nonischemic tracing. Radiology/Procedures Radiology/Procedures EXAMINATION: XR CHEST 1V CLINICAL HISTORY: Right-sided chest pain. EXAM DATE/TIME: 08/19/2021 12:36 AM COMPARISON: 02/19/2021 FINDINGS: Lines, Tubes, and Devices: None. Cardiomediastinal Silhouette: Within normal limits. Lungs and Pleura: No evidence of focal airspace consolidation or pleural effusion. Pulmonary vasculature unremarkable. Bones and Soft Tissues: No acute osseous abnormality. IMPRESSION: No evidence of acute cardiopulmonary abnormality. Electronically signed by: Ed Hearn DO (08/19/2021 1:22 AM) [facility] DICTATED and SIGNED BY: ED HEARN DO DATE: 08/19/21120 Course & Med Decision Making Course & Med Decision Making 36-year-old female here with atypical pleuritic chest discomfort on the right side for 2 days. Vital signs and clinical examination are reassuring. Triage EKG is nonischemic. HEART score low risk at 1 (points for HTN and obesity risk factors only); Wells low risk for pulmonary embolism. Will check labs and chest x-ray as noted and will then reevaluate. If work-up is reassuring, anticipate likely discharge home with medication for symptoms to follow-up very closely with primary care. As patient has recurrently had episodes of atypical chest discomfort per records, will plan for expeditious referral to cardiology clinic as well. Patient understands and agrees. 0135: Labs including D-dimer unremarkable aside from mildly low serum potassium which have been addressed with oral repletion and is likely due to the patient's thiazide diuretic. Chest x-ray negative. Patient resting comfortably in no acute distress on serial reassessments. States her presenting chest discomfort is quite a bit better. No evidence of emergency condition has been identified. Will discharge home as per plan above. Will refer to cardiology as above for close follow-up in the office. Will discharge with an anti-inflammatory course. Patient understands that if he feels worse instead of better or develops other new symptoms of concern that she will need to return to the emergency department immediately for reevaluation. All questions are answered. Dragon Disclaimer Dragon Disclaimer This electronic medical record was generated, in whole or in part, using a voice recognition dictation system. Departure Departure Impression: Primary Impression: Pleuritic chest pain Additional Impression: Acute hypokalemia Disposition: HOME / SELF CARE / HOMELESS Condition: IMPROVED Referrals: JONEL ACHARYA MD Patient Instructions: Chest Pain (Nonspecific) Additional Instructions: Follow-up with your primary care doctor in the office in the next 2 to 4 days for reevaluation of your symptoms and a discussion of next best steps in care. We are also referring you to the cardiology clinic to see one of our heart doctors in the office. Please call Dr. Acharya's office at the telephone number provided to make an appointment to be seen. Let the clinical case manager know that this is for an ED follow-up appointment for chest pain and that you need to be worked in for an appointment to be seen in the next 1 week. They will handle the rest. Your potassium level was a little on the low side today. This is probably because of your chlorthalidone medication. Recommend you have your potassium level rechecked by your primary doctor at your upcoming appointment. Take a 600 mg ibuprofen pill every 6 hours as needed for discomfort. Apply a Lidoderm patch daily to the area that hurts, leave it on for 12 hours and then remove it. The next day you may apply a new patch. Return to the emergency department right away for worsening symptoms of any kind or with any other new symptoms of concern. Scripts [lidoderm 5% patch] No Conflict Check 1 PATCH TOP DAILY PRN for PAIN, #10 PATCH Prov: JIMBO BROOKS MD 08/19/21 Ibuprofen (IBUPROFEN) 600 Mg Tablet 600 MG PO PRN Q6HRS PRN for PAIN, #24 TAB take with food or milk Prov: JIMBO BROOKS MD 08/19/21 Problem Qualifiers JIMBO BROOKS MD Aug 19, 2021 00:43
[2021-08-19 00:59] LABS: BASO # 0.1 x10^3/uL (0.0-0.2); BASO % 1 % (0-3); EOS # 0.3 x10^3/uL (0.0-0.7); EOS % 3 % (0-3); HEMATOCRIT 36.7 % (36.0-47.0); HEMOGLOBIN 12.3 g/dL (12.0-15.5); LYMPH # 4.4 x10^3/uL (1.0-4.8); LYMPH % 45 % (24-48); MEAN CORPUSCULAR HEMOGLOBIN 27 pg (25-35); MEAN CORPUSCULAR HGB CONC 34 g/dL (31-37); MEAN CORPUSCULAR VOLUME 79 fL (79-100); MONO # 0.7 x10^3/uL (0.0-1.1); MONO % 8 % (0-9); NEUT # 4.2 x10^3/uL (1.8-7.7); NEUT % 44 % (31-73); PLATELET COUNT 446 x10^3/uL (140-400); RED BLOOD COUNT 4.66 x10^6/uL (3.50-5.40); RED CELL DISTRIBUTION WIDTH 15.6 % (11.5-14.5); WHITE BLOOD COUNT 9.7 x10^3/uL (4.0-11.0)
[2021-08-19] MEDS ORDERED: ASPIRIN 325 MG TABLET PO ONE (01:00)
[2021-08-19] MEDS ORDERED: LIDOCAINE (700MG/PATCH) PATCH. TD ONE (01:00)
[2021-08-19 01:09] LABS: PROTHROMBIN TIME PATIENT 13.5 SEC (11.7-14.0)
[2021-08-19 01:10] LABS: PARTIAL THROMBOPLASTIN TIME 34 SEC (24-38)
[2021-08-19 01:11] LABS: CALCIUM 8.9 mg/dL (8.5-10.1); CREATININE 0.7 mg/dL (0.6-1.0); GFR 114.6; POTASSIUM 3.1 mmol/L (3.5-5.1)
[2021-08-19 01:17] LABS: ALBUMIN 3.2 g/dL (3.4-5.0); ALBUMIN/GLOBULIN RATIO 0.6 (1.0-1.7); TOTAL BILIRUBIN 0.2 mg/dL (0.2-1.0); TOTAL PROTEIN 8.4 g/dL (6.4-8.2)
[2021-08-19 01:18] LABS: D-DIMER < 0.27 ug/mlFEU (0.00-0.50)
--- NOTE | 2021-08-19 01:24 | RAD ---
EXAMINATION: XR CHEST 1V CLINICAL HISTORY: Right-sided chest pain. EXAM DATE/TIME: 08/19/2021 12:36 AM COMPARISON: 02/19/2021 FINDINGS: Lines, Tubes, and Devices: None. Cardiomediastinal Silhouette: Within normal limits. Lungs and Pleura: No evidence of focal airspace consolidation or pleural effusion. Pulmonary vasculat ure unremarkable. Bones and Soft Tissues: No acute osseous abnormality. IMPRESSION: No evidence of acute cardiopulmonary abnormality. Electronically signed by: Ed Watts DO (08/19/2021 1:22 AM) [place]
[2021-08-19] MEDS ORDERED: POTASSIUM CHLORIDE 20 MEQ TABLET.ER. PO ONE (01:30)
[2021-08-19 01:42] VITALS: BP 125/82
[2021-08-19] MEDS ORDERED: lidoderm 5% patch TOP (01:43)
[2021-08-19] MEDS ORDERED: IBUP-1007 PO (01:43)
[2021-08-19] MEDS ORDERED: KETOROLAC 30 MG/ML VIAL. IVP ONE (02:00)
--- NOTE | 2021-08-19 02:28 | EKG ---
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
== END 2021-08-19 02:04 | disposition home or self-care (01) ==
LOC: ER
DX: E87.6 Hypokalemia (principal); R07.81 Pleurodynia; I10 Essential (primary) hypertension; F41.9 Anxiety disorder, unspecified; E66.01 Morbid (severe) obesity due to excess calories; Z68.44 Body mass index [BMI] 60.0-69.9, adult
CPT/HCPCS: 36415; 71045; 80053; 81025; 83880; 84484; 85025; 85379; 85610; 85730; 93005; 96374; 99285; J1885